=== PATIENT | male | born 1970 | race Caucasian/White ===

== ENCOUNTER 2020-03-19 16:44 | Emergency (ER) | payer OTHER ==
[~2020-03-19] VITALS: Ht 175.3 cm; Wt 117.9 kg
[~2020-03-19 16:44] MED LIST: ACHD5005 PO; AMOX-355 PO; BACL10TA PO; FLUT9.9S NS; LORA10TA7 PO; NAPR-243 PO
[2020-03-19 16:53] VITALS: BP 144/96
[2020-03-19] MEDS ORDERED: TETRACAINE 0.5% OPHTH SOLN 4 ML BTL (SINGLE DOSE ONLY) OU ONE (17:00)
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
--- OUTSIDE RECORDS SUMMARY | 2020-03-19 22:11 | XMS REPORT | Continuity of Care Document ---
Author [facility] Address Unknown Phone Unavailable Care Team Providers Care Propulsion Systems Engineer Name Role Phone [facility] Unavailable Unavailable Problems Combined list of all problems from all Department of Defense and [facility] facilities. It does not include entries that were removed or entered in error. Problem Status Onset Date Problem Type Date of Resolution Comments Source visit for: routine eye exam Inactive Condition 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) Active Condition [facility] Cat bite - wound (SNOMED CT 979857657) Active Condition [facility] Chronic post-traumatic stress disorder ( SNOMED CT 334259345) Active Condition [facility] Depression * (ICD-9-CM 311.) Active Condition [facility] Environmental Allergies Active Condition [facility] Fatigue Active Condition [facility] Headaches * (ICD-9-CM 784.0) Active Condition [facility] Hearing loss * (ICD-9-CM 389.9) Active Condition [facility] Hyperlipidemia (SNOMED CT 52328837) Active Condition [facility] Moderate recurrent major depression (SNOMED CT 0116049 9) Active Condition [facility] Other, mixed, or unspecified drug abuse (ICD-9-CM 305. 90) Active Condition [facility] Subjective Tinnitus Active Condition [facility] Unspecified condition of brain (ICD-9-CM 348.9) Active Condition [facility] ICD-10-CM F33.1 Major depressive disorde r, recurrent, moderate with Provider Comments: Major Depressive Disorder,Recurrent,Moderate active Diagnosis [facility] ICD-10-CM Z71.89 Other specified counseling services manager ing with Provider Comments: Other specified counseling active Diagnosis [facility] ICD-10-CM G43.911 Migraine, unspecified, intractable, with status migrainosus with Provider Comments: Migraine, unspecified, Intractable, with Status Migrainosus active Diagnosis [facility] ICD-10-CM M25.522 Pain in left elbow wit h Provider Comments: Pain in left Elbow active Diagnosis [facility] ICD-10-CM B49. 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 Medication Details Route Status Patient Instructions Prescription Expires Prescript ion Number Last Dispense Date Ordering Pr ovider Order Date Source Atorvastatin 20mg, (Lipitor), Tablet, Oral TAKE ONE-HALF TABLET BY MOUTH EVERY OTHER DAY FOR CHOLESTEROL - REPORT ANY UNEXPLAINED MUSCLE PAIN/WEAKNESS TO YOUR PROVIDER Active 01/05/2021 [id number] 03/26/2020 [facility] 20mg, (Lipitor), Tablet, Oral TAKE ONE-HALF TABLET BY MOUTH EVERY OTHER DAY FOR CHOLESTEROL - REPORT ANY UNEXPLAINED MUSCLE PAIN/WEAKNESS TO YOUR PROVIDER Discontinued 03/15/2020 [id number] 09/03/2019 [facility]ACOB CRAIG [facility] Ator[facility]atin 20mg, (Lipitor), Tablet, Oral TAKE ONE-HALF TABLET BY MOUTH EVERY OTHER DAY FOR CHOLESTEROL - REPORT ANY UNEXPLAINED MUSCLE PAIN/WEAKNESS TO YOUR PROVIDER 10/18/2019 [id number] 03/17/2019 JACOB CRAIG 04[facility]03/2019 [facility] ATORVASTATIN CA 20MG TAB TAKE ONE-HALF TABLET BY MOUTH EVERY OTHER DAY FOR CHOLESTEROL - REPORT ANY UNEXPLAINED MUSCLE PAIN/WEAKNESS TO YOUR PROVIDER ACTIVE 01/05/2021 [id number] 03/26/2020 JACOB CRAIG 01/06/2020 [facility] ATORVASTATIN CA 20MG TAB TAKE ONE-HALF TABLET BY MOUTH EVERY OTHER DAY FOR CHOLESTEROL - REPORT ANY UNEXPLAINED MUSCLE PAIN/WEAKNESS TO YOUR PROVIDER DISCONTINUE 03/15/2020 [id number] 09/03/2019 JACOB CRAIG 06/15/2019 [facility] ATORVASTATIN CA 20MG TAB TAKE ONE-HALF TABLET BY MOUTH EVERY OTHER DAY FOR CHOLESTEROL - REPORT ANY UNEXPLAINED MUSCLE PAIN/WEAKNESS TO YOUR PROVIDER DISCONTINUE 10/18/2019 [id number] 03/17/2019 JACOB CRAIG 12/27/2018 [facility] FISH OIL 1000MG (500MG DHA/EPA) CAP,ORAL TAKE 2 CAPSULES BY MOUTH ONCE A DAY ACTIVE MADDIECARLOS Villegas Dulce Maria 08/11/2016 [facility] Fluoxetine (Prozac or Eq.) Capsule Conve ntional 20 mg Oral TAKE THREE CAPSULES BY MOUTH EVERY MORNING FOR MOOD. Active 12/19/2020 [id number] 06/07/2020 SANTIAGO SORIA 02/29/2020 [facility] Flu[facility] (Prozac or Eq.) Capsule Conve ntional 20 mg Oral TAKE TWO CAPSULES BY MOUTH EVERY MORNING FOR MOOD. Discontinued 09/19/2020 [id number] 12/09/2019 SANTIAGO SORIA 12/19/2019 [facility] Flu[facility] (Prozac or Eq.) Capsule Conve ntional 20 mg Oral TAKE ONE CAPSULE BY MOUTH EVERY MORNING FOR 2 WEEKS, THEN TAKE TWO CAPSULES EVERY MORNING FOR MOOD. Discontinued 09/19/2020 [id number] 09/20/2019 SANTIAGO SORIA 10/02/2019 [facility] Flu[facility] (Prozac or Eq.) Capsule Conve ntional 20 mg Oral TAKE TWO CAPSULES BY MOUTH EVERY MORNING FOR MOOD. PATIENT NEEDS TO FOLLOW UP WITH REGULAR PROVIDER TO GET FURTHER REFILL. Discontinued 06/12/2019 [id number] 03/14/2019 ASH MCDERMOTT 09/02/2019 [facility] FLUOXETINE HCL 20MG CAP TAKE 3 CAPSULES BY MOUTH EVERY MORNING FOR MOOD. ACTIVE/SUSP 12/19/2020 [id number] 06/07/2020 SANTIAGO SORIA 12/20/2019 JIM DAVILA [facility] FLUOXETINE HCL 20MG CAP TAKE T WO CAPSULES BY MOUTH EVERY MORNING FOR MOOD. DISCONTINUED (EDIT) 09/19/2020 [id number] 12/09/2019 SANTIAGO SORIA 12/09/2019 JIM DAVILA [facility] FLUOXETINE HCL 20MG CAP TAKE 1 CAPSULE BY MOUTH EVERY MORNING FOR 2 WEEKS THEN TAKE 2 CAPSULES BY MOUTH EVERY MORNING FOR MOOD. DISCONTINUE 09/19/2020 [id number] 09/20/2019 SANTIAGO SORIA 09/20/2019 JIM DAVILA [facility] FLUOXETINE HCL 20MG CAP TAKE T WO CAPSULES BY MOUTH EVERY MORNING FOR MOOD. PATIENT NEEDS TO FOLLOW UP WITH REGULAR PROVIDER TO GET FURTHER REFILL. DISCONTINUED 06/12/2019 [id number] 03/14/2019 ASH MCDERMOTT 03/14/2019 JIM DAVILA [facility] Fluticasone Propionate (Flonase) [place] 50 mcg Nasal INSTILL 2 SPRAYS IN EACH NOSTRIL ONCE A DAY SHAKE GENTLY BEFORE USE! - MUST BE USED DIRECTED FOR 3 WEEKS TO PROVIDE BENEFIT. * NO EARLY REFILLS * 1UNIT = 30DAYS AT 4 PF/DAY OR 60DAYS AT 2PF/DAY Active 08/24 [id number] 02/26/2020 JACOB CRAIG 12/07/2019 [facility], VISN 15 FLUTICASONE PROPIONATE 50MCG/SPRAY SOLN,NASAL,16GM INSTILL 2 SPRAYS IN EACH NOSTRIL ONCE A DAY SHAKE GENTLY BEFORE USE! - MUST BE USED DIRECTED FOR 3 WEEKS TO PROVIDE BENEFIT. * NO EARLY REFILLS * 1UNIT = 30DAYS AT 4 PF/DAY OR 60DAYS AT 2PF/DAY ACTIVE 08/24 [id number] 02/26/2020 JACOB CRAIG 12/08/2019 [facility] FLUTICASONE PROPIONATE 50MCG/SPRAY SOLN,NASAL,16GM INSTILL 2 SPRAYS IN EACH NOSTRIL ONCE A DAY SHAKE GENTLY BEFORE USE! - MUST BE USED DIRECTED FOR 3 WEEKS TO PROVIDE BENEFIT. * NO EARLY REFILLS * 1UNIT = 30DAYS AT 4 PF/DAY OR 60DAYS AT 2PF/DAY DISCONTINUE 03/03/2020 [id number] 09/19/2019 JACOB CRAIG 03/08/2019 [facility] IBUPROFEN 200MG TAB TAKE ONE T ABLET BY MOUTH TWO TIMES A DAY NEEDED ACTIVE JACOB CRAIG 03/21/2019 [facility] Omeprazole (Prilosec Eq.) Capsule [place] d Release 20 mg Oral TAKE ONE CAPSULE BY MOUTH EVERY MORNING TO LOWER STOMACH ACID. TAKE 30 MINUTES PRIOR TO FOOD. Active 09/08/2020 [id number] 05/26/2020 JACOB CRAIG 02/21/2020 [facility], VISN 15 OMEPRAZOLE 20MG CAP,EC TAKE ON E CAPSULE BY MOUTH EVERY MORNING TO LOWER STOMACH ACID. TAKE 30 MINUTES PRIOR TO FOOD. ACTIVE/SUSP 09/08/2020 [id number] 05/26/2020 JACOB CRAIG Janiya 09/09/2019 [facility] OMEPRAZOLE 20MG CAP,EC TAKE ON E CAPSULE BY MOUTH EVERY MORNING TO LOWER STOMACH ACID. TAKE 30 MINUTES PRIOR TO FOOD. 01/27/2019 [id number] 01/03/2019 RAFAJACOB 04/18/2018 [facility] Sildenafil 50mg, Tablet, Oral TAKE ONE-HALF TABLET BY MOUTH DIRECTED FOR ERECTILE DYSFUNCTION. ONE HOUR BEFORE SEXUAL ENCOUNTER *DO NOT TAKE MORE THAN 1 DOSE A DAY* 4 DOSES PER 30 DAYS ONLY! Active 08/31/2020 [id number] 01/20/2020 RAFAJACOB 12/15/2019 [facility], VISN 15 Sildenafil 50mg, Tablet, Oral TAKE ONE-HALF TABLET BY MOUTH DIRECTED FOR ERECTILE DYSFUNCTION. ONE HOUR BEFORE SEXUAL ENCOUNTER *DO NOT TAKE MORE THAN 1 DOSE A DAY* 4 DOSES PER 30 DAYS ONLY! Discontinued 03/15/2020 [id number] 08/03/2019 RAFAJACOB 09/03/2019 [facility], VISN 15 SILDENAFIL CITRATE 50MG TAB TA KE ONE-HALF TABLET BY MOUTH DIRECTED FOR ERECTILE DYSFUNCTION. ONE HOUR BEFORE SEXUAL ENCOUNTER *DO NOT TAKE MORE THAN 1 DOSE A DAY* 4 DOSES PER 30 DAYS ONLY! ACTIVE 08/31/2020 [id number] 01/20/2020 RAFAJACOB 09/02/2019 [facility] SILDENAFIL CITRATE 50MG TAB TA KE ONE-HALF TABLET BY MOUTH DIRECTED FOR ERECTILE DYSFUNCTION. ONE HOUR BEFORE SEXUAL ENCOUNTER *DO NOT TAKE MORE THAN 1 DOSE A DAY* 4 DOSES PER 30 DAYS ONLY! DISCONTINUE 03/15/2020 [id number] 08/03/2019 RAFAJACOB ROBBINS 03/16/2019 [facility] SILDENAFIL CITRATE 50MG TAB TA KE ONE-HALF TABLET BY MOUTH DIRECTED FOR ERECTILE DYSFUNCTION. ONE HOUR BEFORE SEXUAL ENCOUNTER *DO NOT TAKE MORE THAN 1 DOSE A DAY* 4 DOSES PER 30 DAYS ONLY! DISCONTINUE 08/12/2019 [id number] 01/19/2019 RAFAJACOB ROBBINS 09/01/2018 [facility] Sumatriptan 25mg, Tablet, Oral TAKE ONE TABLET BY MOUTH DIRECTED FOR MIGRAINE. TAKE AT ONSET OF HEADACHE. MAY REPEAT AFTER 2 HOURS. NOT TO EXCEED 2 TABLETS IN 24 HOURS. Active 10/2020 [id number] 02/13/2020 JACOB CRAIG 01/31/2020 [facility], VISN 15 Sumatriptan 25mg, Tablet, Oral TAKE ONE TABLET BY MOUTH DIRECTED FOR MIGRAINE. TAKE AT ONSET OF HEADACHE. MAY REPEAT AFTER 2 HOURS. NOT TO EXCEED 2 TABLETS IN 24 HOURS. Discontinued 09/19/2020 [id number] 10/10/2019 JACOB CRAIG 01/24/2020 [facility] VISN 15 SUMATRIPTAN SUCCINATE 25MG TAB TAKE ONE TABLET BY MOUTH DIRECTED FOR MIGRAINE. TAKE AT ONSET OF HEADACHE. MAY REPEAT AFTER 2 HOURS. NOT TO EXCEED 2 TABLETS IN 24 HOURS. ACTIVE 10/2020 [id number] 02/13/2020 JACOB CRAIG 01/24/2020 [facility] SUMATRIPTAN SUCCINATE 25MG TAB TAKE ONE TABLET BY MOUTH DIRECTED FOR MIGRAINE. TAKE AT ONSET OF HEADACHE. MAY REPEAT AFTER 2 HOURS. NOT TO EXCEED 2 TABLETS IN 24 HOURS. DISCONTINUE 09/19/2020 [id number] 10/10/2019 JACOB CRAIG 09/20/2019 [facility] TERBINAFINE HCL 1% CREAM,TOP A PPLY LIGHTLY TO AFFECTED AREA TWO TIMES A DAY FOR INFECTION [id number] 09/19/2019 JACOB CRAIG 02/18/2019 [facility] TERBINAFINE HCL 250MG TAB TAKE ONE TABLET BY MOUTH ONCE A DAY 02/16/2020 [id number] 05/11/2019 JACOB CRAIG 02/18/2019 [facility] Terbinafine Hcl, 1%, Cream(gm), Topical APPLY LIGHTLY TO AFFECTED AREA TWO TIMES A DAY FOR INFECTION [id number] 03/06/2019 JACOB CRAIG 02/17/2020 [facility], VISN 15 Terbinafine Hydrochloride (Lamisil Eq.) Tablet 250 mg Oral TAKE ONE TABLET BY MOUTH ONCE A DAY [id number] 03/06/2019 JACOB CRAIG 02/17/2020 [facility], VISN 15 TESTOSTERONE 1.62% 20.25MG/PUMP GEL,TOP APPLY 4 PUMPS (81MG) ON SKIN EVERY MORNING DIRECTED - FOR HORMONE REPLACEMENT- APPLY TO CLEAN DRY INTACT SKIN OF SHOULDERS OR UPPER ARMS DISCONTINUE 09/21/2019 [id number] 08/09/2019 VANN[facility] CARPIO 03/22/[address] [facility] TESTOSTERONE 1.62% 20.25MG/PUMP GEL,TOP APPLY 4 PUMPS (81MG) ON SKIN EVERY MORNING DIRECTED - FOR HORMONE REPLACEMENT- APPLY TO CLEAN DRY INTACT SKIN OF SHOULDERS OR UPPER ARMS 03/16/2020 [id number] 02/08/2020 VANNESSA CARPIO 09/21/[address] [facility] TESTOSTERONE 1.62% 20.25MG/PUMP GEL,TOP APPLY 4 PUMPS (81MG) ON SKIN ONCE A DAY - FOR HORMONE REPLACEMENT- APPLY TO CLEAN DRY INTACT SKIN OF SHOULDERS OR UPPER ARMS. USE EVERY MORNING DIRECTED 03/17/2019 [id number] 02/20/2019 VANNESSA CARPIO 09/27/[address] [facility] Testosterone 20.25 mg/Actuation Gel/Jell y, Topical, 60 Actuation Pump APPLY 4 PUMPS (81MG) ON SKIN ONCE A DAY - FOR HORMONE REPLACEMENT- APPLY TO CLEAN DRY INTACT SKIN OF SHOULDERS OR UPPER ARMS. USE EVERY MORNING DIRECTED 03/17/2019 [id number] 01/15/2019 VANNESSA CARPIO 01/19/2019 [facility], VISN 15 Testosterone 20.25 mg/Actuation, Gel/Jelly, Topical APPLY 4 PUMPS (81MG) ON SKIN EVERY MORNING DIRECTED - FOR HORMONE REPLACEMENT- APPLY TO CLEAN DRY INTACT SKIN OF SHOULDERS OR UPPER ARMS 03/16/2020 [id number] 02/08/2020 VANNESSA CARPIO 03/17/2020 [facility], [facility] 15 Testosterone 20.25 mg/Actuation, Gel/Jelly, Topical APPLY 4 PUMPS (81MG) ON SKIN EVERY MORNING DIRECTED - FOR HORMONE REPLACEMENT- APPLY TO CLEAN DRY INTACT SKIN OF SHOULDERS OR UPPER ARMS Discontinued 09/21/2019 [id number] 08/09/2019 VANNESSA CARPIO 09/22/2019 [facility], [facility] 15 Triamcinolone Acetonide (Kenalog Eq.) Cr eam 0.5% Topical APPLY SPARINGLY TO AFFECTED AREA TWO JAS ES A DAY NEEDED FOR RASH 03/03/2020 [id number] 07/18/2019 JACOB CRAIG 03/04/2020 [facility], VIS[facility] 15 Triamcinolone Acetonide (Kenalog Eq.) Cr eam 0.5% Topical APPLY SPARINGLY TO AFFECTED AREA TWO JAS ES A DAY NEEDED FOR RASH 03/03/2020 [id number] 07/18/2019 JACOB CRAIG 05/29/2019 [facility], V[facility] 15 TRIAMCINOLONE ACETONIDE 0.5% CREAM,TOP APPLY SPARINGLY TO AFFECTED AREA TWO TIMES A DAY NEEDED FOR RASH DISCONTINUE 08/12/2019 [id number] 01/29/2019 JACOB CRAIG 11/10/2018 [facility] TRIAMCINOLONE ACETONIDE 0.5% CREAM,TOP APPLY SPARINGLY TO AFFECTED AREA TWO TIMES A DAY NEEDED FOR RASH 03/03/2020 [id number] 07/18/2019 JACOB CRAIG 04/29/2019 [facility] Valacyclovir 500mg, Tablet, Oral TAKE ONE TABLET BY MOUTH TWO TIMES A DAY NOTE-THIS MEDICATION IS NOT FOR DETENTION USE... 10/18/2019 [id number] 09/19/2019 JACOB CRAIG 10/19/2019 [facility], VIS[facility] 15 VALACYCLOVIR HCL 500MG TAB CESAR E ONE TABLET BY MOUTH TWO TIMES A DAY NOTE-THIS MEDICATION IS NOT FOR TEACHER COUNSELOR USE... 10/18/2019 [id number] 09/19/2019 JACOB CRAIG 10/20/2018 [facility] Allergies, Adverse Reactions, Alerts No Known Medication Allergies Immunizations Combined list of: 1) all immunizations on record at all [facility] facilit ies, and 2) all available immunizations on record at Department of Defense (Do D) facilities. Some immunizations on record at DoD may not be included. Immunization Series Date Given Administered By Site Reaction Lot Number CVX Code Drug Rigging Engineer Status Comments Source INFLUENZA, INJECTABLE, QUADRIVALENT, PRESERVATIVE FREE 09/19/2019 150 completed [facility] INFLUENZA, INJECTABLE, QUADRIVALENT, PRESERVATIVE FREE 06/22/2018 150 completed [facility] INFLUENZA, INJECTABLE, QUADRIVALENT, PRESERVATIVE FREE 06/18/2017 150 completed [facility] INFLUENZA, SEASONAL, INJECTABLE 08/05/2016 141 completed [facility] INFLUENZA (HISTORICAL) 05/15/2015 88 completed [facility] INFLUENZA, SEASONAL, INJECTABLE, PRESERVATIVE FREE 05/15/2015 140 completed [facility] INFLUENZA (HISTORICAL) 06/11/2014 88 completed [facility] INFLUENZA, SEASONAL, INJECTABLE, PRESERVATIVE FREE 06/11/2014 140 completed [facility] TD(ADULT) UNSPECIFIED FORMULATION 01/05/2014 139 completed [id number] exp 03/08/2015 [facility] INFLUENZA (HISTORICAL) 06/21/2013 88 completed [facility] INFLUENZA (HISTORICAL) 06/08/2012 88 completed [facility] TD(ADULT) UNSPECIFIED FORMULATION 04/23/2006 139 completed [facility] 15 Results Combined list of recent chemistry, hematology and other laboratory results going back no more than 15 months from the Department of Defense and Veterans Affairs facilities. Order Name Results Value Reference Range Date Interpretation Specimen Comments Source CBC & DIFF LEUKOCYTES [#/VOLUM E] IN BLOOD BY AUTOMATED COUNT 6.0 K/cmm 3.60 - 11.20 09/19/2019 Specimen Type: BLOOD No comment entered. [facility] CBC & DIFF ERYTHROCYTES [#/VOL UME] IN BLOOD BY AUTOMATED COUNT 5.53 M/ul 4.1 - 5.7 09/19/2019 Specimen Type: BLOOD No comment entered. [facility] DIFF HEMOGLOBIN [MASS/VOLUME] IN BLOOD 15.8 g/dl 13.1 - 16.8 09/19/2019 Specimen T ype: BLOOD No comment entered. [facility] CBC & DIFF HEMATOCRIT [VOLUME FRACTION] OF BLOOD BY AUTOMATED COUNT 47.6 % 38.2 - 48.4 09/19/2019 Specimen Type: BLOOD No comment entered. [facility] CBC & DIFF MCV [ENTITIC VOLUME] BY A UTOMATED COUNT 86.1 fl 80.1 - 98.5 09/19/2019 Specimen Type: BLOOD No comment entered. [facility] CBC & DIFF MCH [ENTITIC MASS] BY AUT OMATED COUNT 28.6 pg 27.0 - 34.0 09/19/2019 Specimen T ype: BLOOD No comment entered. [facility] CBC & DIFF MCHC [MASS/VOLUME] BY AUT OMATED COUNT 33.2 g/dl 33.0 - 36.0 09/19/2019 Specimen Type: BLOOD No comment entered. [facility] CBC & DIFF PLATELETS [#/VOLUME ] IN BLOOD BY AUTOMATED COUNT 227 K/cmm 150 - 400 09/19/2019 Specimen Type: BLOOD No comment entered. [facility] CBC & DIFF PLATELET MEAN VOLUM E [ENTITIC VOLUME] IN BLOOD BY AUTOMATED COUNT 11.0 fl 7.5 - 11.2 09/19/2019 Specimen Type: BLOOD No comment entered. [facility] CBC & DIFF ERYTHROCYTE DISTRIB UTION WIDTH [RATIO] BY AUTOMATED COUNT 11.5 % 11.8 - 15.1 09/19/2019 L Specimen Type: BLOOD No comment entered. [facility] CBC & DIFF LYMPHOCYTES/100 KATT KOCYTES IN BLOOD BY AUTOMATED COUNT 28.9 % 09/19/2019 Specimen Type: BLOOD No comment entered. [facility] CBC & DIFF NEUTROPHILS/100 KATT KOCYTES IN BLOOD BY AUTOMATED COUNT 58.7 % 09/19/2019 Specimen Type: BLOOD No comment entered. [facility] CBC & DIFF MONOCYTES/100 LEUKO CYTES IN BLOOD BY AUTOMATED COUNT 7.6 % 09/19/2019 Specimen Type: BLOOD No comment entered. [facility] CBC & DIFF MONOCYTES [#/VOLUME ] IN BLOOD BY AUTOMATED COUNT 0.5 K/cmm 0.19 - 0.80 09/19/2019 Specimen Type: BLOOD No comment entered. [facility] CBC & DIFF NEUTROPHILS [#/VOLU ME] IN BLOOD BY AUTOMATED COUNT 3.5 K/cmm 2.10 - 8.00 09/19/2019 Specimen Type: BLOOD No comment entered. [facility] CBC & DIFF EOSINOPHILS [#/VOLU ME] IN BLOOD BY AUTOMATED COUNT 0.2 K/cmm 0.00 - 0.60 09/19/2019 Specimen Type: BLOOD No comment entered. [facility] CBC & DIFF BASOPHILS [#/VOLUME ] IN BLOOD BY AUTOMATED COUNT 0.0 K/cmm 0.00 - 0.20 09/19/2019 Specimen Type: BLOOD No comment entered. [facility] CBC & DIFF EOSINOPHILS/100 KATT KOCYTES IN BLOOD BY AUTOMATED COUNT 3.8 % 09/19/2019 Specimen Type: BLOOD No comment entered. [facility] CBC & DIFF BASOPHILS/100 LEUKO CYTES IN BLOOD BY AUTOMATED COUNT 0.7 % 09/19/2019 Specimen Type: BLOOD No comment entered. [facility] CBC & DIFF LYMPHOCYTES [#/VOLU ME] IN BLOOD BY AUTOMATED COUNT 1.7 K/cmm 0.77 - 4.50 09/19/2019 Specimen Type: BLOOD No comment entered. [facility] CBC & DIFF IMMATURE GRANULOCYT ES [#/VOLUME] IN BLOOD BY AUTOMATED COUNT 0.02 K/cmm 0.00 - 0.05 09/19/2019 Specimen Type: BLOOD No comment entered. [facility] CBC & DIFF IMMATURE GRANULOCYT ES/100 LEUKOCYTES IN BLOOD BY AUTOMATED COUNT 0.3 % 09/19/2019 Specimen Type: BLOOD No comment entered. [facility] COMPREHENSIVE METABOLIC PANEL CREATININE [MASS/VOLUME] IN SERUM OR PLASMA 0.83 mg/dL 0.7 - 1.3 09/19/2019 Specimen Type: PLASMA Comment: For eGFR: eGFR results >60 are imprecise. Many variables affect the calculated result. Interpretation of eGFR results >60 must be monitored over time. [facility] COMPREHENSIVE METABOLIC PANEL UREA NITROGEN [MASS/VOLUME] IN SERUM OR PLASMA 17 mg/dL 9 - 25 09/19/2019 Specimen Type: PLASMA Comment: For eGFR: eGFR results >60 are imprecise. Many variables affect the calculated result. Interpretation of eGFR results >60 must be monitored over time. [facility] COMPREHENSIVE METABOLIC PANEL GLUCOSE [MASS/VOLUME] IN SERUM OR PLASMA 97 mg/dL 72 - 99 09/19/2019 Specimen Type: PLASMA Comment: For eGFR: eGFR results >60 are imprecise. Many variables affect the calculated result. Interpretation of eGFR results >60 must be monitored over time. [facility] COMPREHENSIVE METABOLIC PANEL SODIUM [MOLES/VOLUME] IN SERUM OR PLASMA 136 mEq/L 136 - 145 09/19/2019 Specimen Type: PLASMA Comment: For eGFR: eGFR results >60 are imprecise. Many variables affect the calculated result. Interpretation of eGFR results >60 must be monitored over time. [facility] COMPREHENSIVE METABOLIC PANEL POTASSIUM [MOLES/VOLUME] IN SERUM OR PLASMA 4.3 mEq/L 3.5 - 5.0 09/19/2019 Specimen Type: PLASMA Comment: For eGFR: eGFR results >60 are imprecise. Many variables affect the calculated result. Interpretation of eGFR results >60 must be monitored over time. [facility] COMPREHENSIVE METABOLIC PANEL CALCIUM [MASS/VOLUME] IN SERUM OR PLASMA 9.1 mg/dL 8.4 - 10.4 09/19/2019 Specimen Type: PLASMA Comment: For eGFR: eGFR results >60 are imprecise. Many variables affect the calculated result. Interpretation of eGFR results >60 must be monitored over time. [facility] COMPREHENSIVE METABOLIC PANEL PROTEIN [MASS/VOLUME] IN SERUM OR PLASMA 7.3 g/dL 6.0 - 8.6 09/19/2019 Specimen Type: PLASMA Comment: For eGFR: eGFR results >60 are imprecise. Many variables affect the calculated result. Interpretation of eGFR results >60 must be monitored over time. [facility] COMPREHENSIVE METABOLIC PANEL ALBUMIN [MASS/VOLUME] IN SERUM OR PLASMA 4.3 g/dl 3.4 - 5.0 09/19/2019 Specimen Type: PLASMA Comment: For eGFR: eGFR results >60 are imprecise. Many variables affect the calculated result. Interpretation of eGFR results >60 must be monitored over time. [facility] METABOLIC PANEL BILIRUBIN.TOTAL [MASS/VOLUME] IN SERUM OR PLASMA 0.6 mg/dL 0.2 - 1.2 09/19/2019 Specimen Type: PLASMA Comment: For eGFR: eGFR results >60 are imprecise. Many variables affect the calculated result. Interpretation of eGFR results >60 must be monitored over time. [facility] COMPREHENSIVE METABOLIC PANEL ASPARTATE AMINOTRANSFERASE [ENZYMATIC ACTIVITY/VOLUME] IN SERUM OR PLASMA 33 U/L 5 - 34 09/19/2019 Specimen Type: PLASMA Comment: For eGFR: eGFR results >60 are imprecise. Many variables affect the calculated result. Interpretation of eGFR results >60 must be monitored over time. [facility] COMPREHENSIVE METABOLIC PANEL ALANINE AMINOTRANSFERASE [ENZYMATIC ACTIVITY/VOLUME] IN SERUM OR PLASMA 41 U/L 8 - 40 09/19/2019 H Specimen Type: PLASMA Comment: For eGFR: eGFR results >60 are imprecise. Many variables affect the calculated result. Interpretation of eGFR results >60 must be monitored over time. [facility] COMPREHENSIVE METABOLIC PANEL ANION GAP IN SERUM OR PLASMA 5.7 2019 L Specimen Type: PLASMA Comment: For eGFR: eGFR results >60 are imprecise. Many variables affect the calculated result. Interpretation of eGFR results >60 must be monitored over time. [facility] COMPREHENSIVE METABOLIC PANEL CHLORIDE [MOLES/VOLUME] IN SERUM OR PLASMA 103 mEq/L 98 - 107 09/19/2019 Specimen Type: PLASMA Comment: For eGFR: eGFR results >60 are imprecise. Many variables affect the calculated result. Interpretation of eGFR results >60 must be monitored over time. [facility] COMPREHENSIVE METABOLIC PANEL "CARBON DIOXIDE, TOTAL [MOLES/VOLUME] IN SERUM OR PLASMA" 27.3 mEq/L 22 - 31 09/19/2019 Specimen Type: PLASMA Comment: For eGFR: eGFR results >60 are imprecise. Many variables affect the calculated result. Interpretation of eGFR results >60 must be monitored over time. [facility] [place] COMPREHENSIVE METABOLIC PANEL ALKALINE PHOSPHATASE [ENZYMATIC ACTIVITY/VOLUME] IN SERUM OR PLASMA 67 U/L 40 - 150 09/19/2019 Specimen Type: PLASMA Comment: For eGFR: eGFR results >60 are imprecise. Many variables affect the calculated result. Interpretation of eGFR results >60 must be monitored over time. [facility] COMPREHENSIVE METABOLIC PANEL GLOMERULAR FILTRATION RATE/1.73 SQ M.PREDICTED [VOLUME RATE/AREA] IN SERUM OR PLASMA BY CREATININE- BASED FORMULA (MDRD) >60 09/19/2019 Specimen Type: PLASMA Comment: For eGFR: eGFR results >60 are imprecise. Many variables affect the calculated result. Interpretation of eGFR results >60 must be monitored over time. [facility] LIPID PROFILE(HDL,TRIG,CHOL,LDL) CHOLESTEROL [MASS/VOLUME] IN SERUM OR PLASMA 124 mg/dL 0 - 200 09/19/2019 Specimen Type: PLASMA Comment: For eGFR: eGFR results >60 are imprecise. Many variables affect the calculated result. Interpretation of eGFR results >60 must be monitored over time. [facility] LIPID PROFILE(HDL,TRIG,CHOL,LDL) TRIGLYCERIDE [MASS/VOLUME] IN SERUM OR PLASMA 66 mg/dL 0 - 150 09/19/2019 Specimen Type: PLASMA Comment: For eGFR: eGFR results >60 are imprecise. Many variables affect the calculated result. Interpretation of eGFR results >60 must be monitored over time. [facility] LIPID PROFILE(HDL,TRIG,CHOL,LDL) CHOLESTEROL IN HDL [MASS/VOLUME] IN SERUM OR PLASMA 39 mg/dL 09/19/2019 L Specimen Type: PLASMA Comment: For eGFR: eGFR results >60 are imprecise. Many variables affect the calculated result. Interpretation of eGFR results >60 must be monitored over time. [facility] LIPID PROFILE(HDL,TRIG,CHOL,LDL) CHOLESTEROL IN LDL [MASS/VOLUME] IN SERUM OR PLASMA BY CALCULATION 72 mg/dL 0 - 99.9 09/19/2019 Specimen Type: PLASMA Comment: For eGFR: eGFR results >60 are imprecise. Many variables affect the calculated result. Interpretation of eGFR results >60 must be monitored over time. [facility] TESTOSTERONE (RAMON,WI,EK) TESTOS TERONE [MASS/VOLUME] IN SERUM OR PLASMA 180.25 ng/dL 221 - 871 09/19/2019 L Specimen Type: SERUM No comment entered. [facility] TSH THYROTROPIN [UNITS/VOLUME] IN SE RUM OR PLASMA 2.28 uIU/mL 0.47 - 5.00 09/19/2019 Specimen Type: SERUM No comment entered. [facility] GAMMA GLUTAMYL TRANS GAMMA GLU TAMYL TRANSFERASE [ENZYMATIC ACTIVITY/VOLUME] IN SERUM OR PLASMA 42 U/L 12 - 64 10/12/2018 Specimen Type: PLASMA No comment entered. [facility] HEPATIC FUNCTION PANEL PROTEIN [MASS/VOLUME] IN SERUM OR PLASMA 6.9 g/dL 6.0 - 8.6 10/12/2018 Specimen Type: PLASMA No comment entered. [facility] HEPATIC FUNCTION PANEL ALBUMIN [MASS/VOLUME] IN SERUM OR PLASMA 4.2 g/dl 3.4 - 5.0 10/12/2018 Specimen Type: PLASMA No comment entered. [facility] HEPATIC FUNCTION PANEL BILIRUB IN.TOTAL [MASS/VOLUME] IN SERUM OR PLASMA 0.5 mg/dL 0.2 - 1.2 10/12/2018 Specimen Type: PLASMA No comment entered. [facility] HEPATIC FUNCTION PANEL BILIRUB IN.DIRECT [MASS/VOLUME] IN SERUM OR PLASMA 0.2 mg/dL 0 - 0.5 10/12/2018 Specimen Type: PLASMA No comment entered. [facility] HEPATIC FUNCTION PANEL ASPARTA TE AMINOTRANSFERASE [ENZYMATIC ACTIVITY/VOLUME] IN SERUM OR PLASMA 42 U/L 5 - 34 10/12/2018 H Specimen Type: PLASMA No comment entered. [facility] HEPATIC FUNCTION PANEL ALANINE AMINOTRANSFERASE [ENZYMATIC ACTIVITY/VOLUME] IN SERUM OR PLASMA 58 U/L 8 - 40 10/12/2018 H Specimen Type: PLASMA No comment entered. [facility] HEPATIC FUNCTION PANEL ALKALIN E PHOSPHATASE [ENZYMATIC ACTIVITY/VOLUME] IN SERUM OR PLASMA 76 U/L 40 - 150 10/12/2018 Specimen Type: PLASMA No comment entered. [facility] COMPREHENSIVE METABOLIC PANEL CREATININE [MASS/VOLUME] IN SERUM OR PLASMA 0.97 mg/dL 0.7 - 1.3 06/22/2018 Specimen Type: PLASMA Comment: For eGFR: eGFR results >60 are imprecise. Many variables affect the calculated result. Interpretation of eGFR results >60 must be monitored over time. [facility] COMPREHENSIVE METABOLIC PANEL UREA NITROGEN [MASS/VOLUME] IN SERUM OR PLASMA 18 mg/dL 9 - 25 06/22/2018 Specimen Type: PLASMA Comment: For eGFR: eGFR results >60 are imprecise. Many variables affect the calculated result. Interpretation of eGFR results >60 must be monitored over time. [facility] COMPREHENSIVE METABOLIC PANEL GLUCOSE [MASS/VOLUME] IN SERUM OR PLASMA 91 mg/dL 72 - 99 06/22/2018 Specimen Type: PLASMA Comment: For eGFR: eGFR results >60 are imprecise. Many variables affect the calculated result. Interpretation of eGFR results >60 must be monitored over time. [facility] COMPREHENSIVE METABOLIC PANEL SODIUM [MOLES/VOLUME] IN SERUM OR PLASMA 139 mEq/L 136 - 145 06/22/2018 Specimen Type: PLASMA Comment: For eGFR: eGFR results >60 are imprecise. Many variables affect the calculated result. Interpretation of eGFR results >60 must be monitored over time. [facility] COMPREHENSIVE METABOLIC PANEL POTASSIUM [MOLES/VOLUME] IN SERUM OR PLASMA 4.2 mEq/L 3.5 - 5.0 06/22/2018 Specimen Type: PLASMA Comment: For eGFR: eGFR results >60 are imprecise. Many variables affect the calculated result. Interpretation of eGFR results >60 must be monitored over time. [facility] COMPREHENSIVE METABOLIC PANEL CALCIUM [MASS/VOLUME] IN SERUM OR PLASMA 9.2 mg/dL 8.4 - 10.4 06/22/2018 Specimen Type: PLASMA Comment: For eGFR: eGFR results >60 are imprecise. Many variables affect the calculated result. Interpretation of eGFR results >60 must be monitored over time. [facility] COMPREHENSIVE METABOLIC PANEL PROTEIN [MASS/VOLUME] IN SERUM OR PLASMA 7.1 g/dL 6.0 - 8.6 06/22/2018 Specimen Type: PLASMA Comment: For eGFR: eGFR results >60 are imprecise. Many variables affect the calculated result. Interpretation of eGFR results >60 must be monitored over time. [facility] COMPREHENSIVE METABOLIC PANEL ALBUMIN [MASS/VOLUME] IN SERUM OR PLASMA 4.4 g/dl 3.4 - 5.0 06/22/2018 Specimen Type: PLASMA Comment: For eGFR: eGFR results >60 are imprecise. Many variables affect the calculated result. Interpretation of eGFR results >60 must be monitored over time. [facility] COMPREHENSIVE METABOLIC PANEL BILIRUBIN.TOTAL [MASS/VOLUME] IN SERUM OR PLASMA 0.7 mg/dL 0.2 - 1.2 06/22/2018 Specimen Type: PLASMA Comment: For eGFR: eGFR results >60 are imprecise. Many variables affect the calculated result. Interpretation of eGFR results >60 must be monitored over time. [facility] COMPREHENSIVE METABOLIC PANEL ASPARTATE AMINOTRANSFERASE [ENZYMATIC ACTIVITY/VOLUME] IN SERUM OR PLASMA 36 U/L 5 - 34 06/22/2018 H Specimen Type: PLASMA Comment: For eGFR: eGFR results >60 are imprecise. Many variables affect the calculated result. Interpretation of eGFR results >60 must be monitored over time. [facility] COMPREHENSIVE METABOLIC PANEL ALANINE AMINOTRANSFERASE [ENZYMATIC ACTIVITY/VOLUME] IN SERUM OR PLASMA 67 U/L 8 - 40 06/22/2018 H Specimen Type: PLASMA Comment: For eGFR: eGFR results >60 are imprecise. Many variables affect the calculated result. Interpretation of eGFR results >60 must be monitored over time. [facility] COMPREHENSIVE METABOLIC PANEL ANION GAP IN SERUM OR PLASMA 7.7 2017 L Specimen Type: PLASMA Comment: For eGFR: eGFR results >60 are imprecise. Many variables affect the calculated result. Interpretation of eGFR results >60 must be monitored over time. [facility] COMPREHENSIVE METABOLIC PANEL CHLORIDE [MOLES/VOLUME] IN SERUM OR PLASMA 104 mEq/L 98 - 107 06/22/2018 Specimen Type: PLASMA Comment: For eGFR: eGFR results >60 are imprecise. Many variables affect the calculated result. Interpretation of eGFR results >60 must be monitored over time. [facility] COMPREHENSIVE METABOLIC PANEL CARBON DIOXIDE, TOTAL [MOLES/VOLUME] IN SERUM OR PLASMA 27.3 mEq/L 22 - 31 06/22/2018 Specimen Type: PLASMA Comment: For eGFR: eGFR results >60 are imprecise. Many variables affect the calculated result. Interpretation of eGFR results >60 must be monitored over time. [facility] COMPREHENSIVE METABOLIC PANEL ALKALINE PHOSPHATASE [ENZYMATIC ACTIVITY/VOLUME] IN SERUM OR PLASMA 84 U/L 40 - 150 06/22/2018 Specimen Type: PLASMA Comment: For eGFR: eGFR results >60 are imprecise. Many variables affect the calculated result. Interpretation of eGFR results >60 must be monitored over time. [facility] COMPREHENSIVE METABOLIC PANEL GLOMERULAR FILTRATION RATE/1.73 SQ M.PREDICTED [VOLUME RATE/AREA] IN SERUM OR PLASMA BY CREATININE- BASED FORMULA (MDRD) >60 06/22/2018 Specimen Type: PLASMA Comment: For eGFR: eGFR results >60 are imprecise. Many variables affect the calculated result. Interpretation of eGFR results >60 must be monitored over time. [facility] TESTOSTERONE,FREE&TOTAL TESTOS TERONE FREE [MASS/VOLUME] IN SERUM OR PLASMA 31.9 pg/mL 46.0 - 224.0 06/22/2018 L Specimen Type: SERUM Comment: TESTOSTERONE, TOTAL, MS For additional information, please refer to http://[employer]faq/ [id number] (This link is being provided for informational/ educational purposes only.) This test was developed and its analytical performance characteristics have been determined by [employer] [place], [place]. It has not been cleared or approved by the U.S. Food and Drug Administration. This assay has been validated pursuant to the CLIA regulations and is used for clinical pur poses. [facility] TESTOSTERONE,FREE&TOTAL TESTOS TERONE.FREE+WEAKLY BOUND [MASS/VOLUME] IN SERUM OR PLASMA 65.6 ng/dL 110.0 - 575.0 06/22/2018 L Specimen Type: SERUM Comment: TESTOSTERONE, TOTAL, MS For additional information, please refer to http://[employer]faq/ TotalTestosteroneLC [email or web address] (This link is being provided for informational/ educational purposes only.) This test was developed and its analytical performance characteristics have been determined by [employer] [place], [place]. It has not been cleared or approved by the U.S. Food and Drug Administration. This assay has been validated pursuant to the CLIA regulations and is used for clinical purposes. [facility] TESTOSTERONE,FREE&TOTAL SEX HO RMONE BINDING GLOBULIN [MASS/VOLUME] IN SERUM OR PLASMA 26 nmol/L 10 - 50 06/22/2018 Specimen Type: SERUM Comment: TESTOSTERONE, TOTAL, MS For additional information, please refer to http://[employer]faq/ [id number] (This link is being provided for informational/ educational purposes only.) This test was developed and its analytical performance characteristics have been determined by [employer] [place], [place]. It has not been cleared or approved by the U.S. Food and Drug Administration. This assay has been validated pursuant to the CLIA regulations and is used for clinical pur poses. [facility] TESTOSTERONE,FREE&TOTAL ALBUMI N [MASS/VOLUME] IN SERUM OR PLASMA 4.5 g/dL 3.6 - 5.1 06/22/2018 Specimen Type: SERUM Comment: TESTOSTERONE, TOTAL, MS For additional information, please refer to http://[employer]faq/ OnzqsRybwjxhemifzFEIEYOWVV489 (This link is being provided for informational/ educational purposes only.) This test was developed and its analytical performance characteristics have been determined by [employer] [place], [place]. It has not been cleared or approved by the U.S. Food and Drug Administration. This assay has been validated pursuant to the CLIA regulations and is used for clinical pur poses. [facility] TESTOSTERONE,FREE&TOTAL TESTOS TERONE [MASS/VOLUME] IN SERUM OR PLASMA 215 ng/dL 250 - 1100 06/22/2018 L Specimen Type: SERUM Comment: TESTOSTERONE, TOTAL, MS For additional information, please refer to http://[employer]/faq/ [email or web address] (This link is being provided for informational/ educational purposes only.) This test was developed and its analytical performance characteristics have been determined by [employer] [place], [place]. It has not been cleared or approved by the U.S. Food and Drug Administration. This assay has been validated pursuant to the CLIA regulations and is used for clinical pur poses. [facility] URINALYSIS COLOR OF URINE Yello w 06/22/2018 Specimen Type: URINE No comment entered. [facility] URINALYSIS SPECIFIC GRAVITY OF URINE 1.027 06/22/2018 Specimen Type: URINE No comment entered. [facility] URINALYSIS UROBILINOGEN [MASS/VOLUME ] IN URINE 2.0 mg/dL 0.1 - 1.0 06/22/2018 H Specimen Type: URINE No comment entered. [facility] URINALYSIS BILIRUBIN.TOTAL [SC ESENCE] IN URINE BY TEST STRIP Negative 1 Specimen Type: URINE No comment entered. [facility] URINALYSIS KETONES [MASS/VOLUME] IN URINE BY TEST STRIP Negativemg/dl 06/22/2018 Specimen Type: URINE No comment entered. [facility] URINALYSIS GLUCOSE [MASS/VOLUME] IN URINE BY TEST STRIP Negativemg/dL 06/22/2018 Specimen Type: URINE No comment entered. [facility] URINALYSIS PROTEIN [MASS/VOLUME] IN URINE BY TEST STRIP Negativemg/dl - Trace" 06/22/2018 Specimen Type: URINE No comment entered. [facility] URINALYSIS PH OF URINE BY TEST STRIP 6.0 06/22/2018 Specimen Type: URINE No comment entered. [facility] URINALYSIS APPEARANCE OF URINE Clear 06/22/2018 Specimen Type: URINE No comment entered. [facility] URINALYSIS HEMOGLOBIN [PRESENCE] IN URINE Negative 06/22/2018 Specimen Type: URINE No comment entered. [facility] URINALYSIS NITRITE [PRESENCE] IN URI NE BY TEST STRIP Negative 06/22/2018 Specimen T ype: URINE No comment entered. [facility] URINALYSIS LEUKOCYTE ESTERASE [PRESENCE] IN URINE BY TEST STRIP Negative 1 Specimen Type: URINE No comment entered. [facility] Vital Signs Combined list of inpatient and outpatient Vital Signs from all [facility] and/or [facility] medical facilities within the last 15 months. The included entries comply with the patient's data sharing authorizations. Vital Sign Value Date Comments Source PAIN 0 09/19 09:09:00 [facility] SYSTOLIC BLOOD PRESSURE 126mm[ Hg] 03/21/2019 08:25:49 [facility] DIASTOLIC BLOOD PRESSURE 85mm[ Hg] 03/21/2019 08:25:49 [facility] PULSE OXIMETRY 92% 03/21/2019 08:25:49 [facility] WEIGHT 200[lb_av] 03/21/2019 08:25:49 [facility] BMI 30kg/m2 03/21/2019 08:25:49 [facility] HEIGHT 69[in_us] 03/21/2019 08:25:49 [facility] TEMPERATURE 97.5[degF] 03/21/2019 08:25:49 [facility] PULSE 66/min 03/21/2019 08:25:49 [facility] RESPIRATION 18/min 03/21/2019 08:25:49 [facility] Encounters Combined list of encounters at [facility] of Defense and/or [facility] ([place] ) for the last 15 months. Not all VA inpatient encounters are included. The incl uded entries comply with the patient's data sharing authorizations. Location Location Details Encounter Type Encounter Number Reason For Visit Attending Provider ADM Date DC Date Status Disposition Source OUTPATIENT [id number] [facility] 06/11/2004 Released w/o Edwin MORIN [place], [place](Optometry) Outpatient Encounter [id number] ICD-10 -CM H40.013 Open angle with borderline findings, low risk, bilateral with Provider Comments: Open Angle with Borderline Findings, low Risk, Bilateral EFRA RAMESH 10/21/2018 [facility] Outpatient Encounter [id number] _MAPID:[id number] 11/02/2018 [facility] Outpatient Encounter [id number] _MAPID:[id number] 11/02/2018 [facility] Outpatient Encounter [id number] _MAPID:[id number] 12/08/2018 [facility] Outpatient Encounter [id number] _MAPID:e [id number] 12/13/2018 [facility] Out[facility] Encounter [id number] _MAPID:[id number] 12/27/2018 JIM DAVILA [facility] Outpatient Encounter [id number] _MAPID:e [id number] 01/04/2019 [facility] Outpatient Encounter [id number] _MAPID:e [id number] 01/26/2019 [facility] Encounter [id number] ICD-10 -CM Z71.89 Other specified counseling with Provider Comments: Other specified counseling DANIELLALUZARELI العراقي 01/30/2019 [facility] OFFICE/OUT PATIENT VISIT EST [id number] ICD-10 -CM B49. Unspecified mycosis with Provider Comments: Unspecified Mycosis JACOB CRAIG 02/15/2019 [facility] Outpatient Encounter [id number] _MAPID:[id number] 03/10/2019 [facility] Outpatient Encounter [id number] ICD-10 -CM Z71.89 Other specified counseling with Provider Comments: Other specified counseling TAYLOR MANNING 03/10/2019 JIM DAVILA [facility] OFFICE/OUT PATIENT VISIT EST [id number] ICD-10 -CM M25.522 Pain in left elbow with Provider Comments: Pain in left Elbow JACOB CRAIG 03/21/2019 [facility] Outpatient Encounter [id number] _MAPID:[id number] 03/22/2019 JIM DAVILA [facility] Outpatient Encounter [id number] _MAPID:e [id number] 05/31/2019 [place] [address] Outpatient Encounter [id number] _MAPID:[id number] 07/19/2019 [facility] Outpatient Encounter [id number] _MAPID:[id number] 08/08/[facility] [id number] _MAPID:[id number] 08/11/2019 [facility] [id number] _MAPID:[id number] 08/14/2019 [facility] [id number] _MAPID:[id number] 09/01/2019 JIM DAVILA [facility] Outpatient Encounter [id number] ICD-10 -CM Z71.89 Other specified counseling with Provider Comments: Other specified counseling MAURINIKOLAI L 09/01/2019 JIM DAVILA [facility] Outpatient Encounter [id number] _MAPID:[id number] 09/15/2019 [facility] Outpatient Encounter [id number] _MAPID:[id number] 09/19/2019 [facility] OFFICE/OUT PATIENT VISIT EST [id number] ICD-10 -CM G43.911 Migraine, unspecified, intractable, with status migrainosus with Provider Comments: Migraine, unspecified, Intractable, with Status Migrainosus JACOB CRAIG 09/19/2019 [facility] OFFICE/OUT PATIENT VISIT EST [id number] ICD-10 -CM F33.1 Major depressive disorder, recurrent, moderate with Provider Comments: Major Depressive Disorder,Recurrent,Moderate ESTELLASANTIAGO S 09/19/2019 JIM Sanchez BARRYAlyce [facility] OFFICE/OUT PATIENT VISIT EST [id number] ICD-10 -CM F33.1 Major depressive disorder, recurrent, moderate with Provider Comments: Major Depressive Disorder,Recurrent,Moderate ESTELLASANTIAGO S 09/19/2019 [facility] Outpatient Encounter [id number] _MAPID:[id number] 09/21/2019 JIM CarreroTatiana REDDYAlyce [facility] Outpatient Encounter [id number] _MAPID:e [id number] TERI GARRETT 10/11/2019 [place] [address] Outpatient Encounter [id number] _MAPID:[id number] 10/18/2019 [facility] Outpatient Encounter [id number] ICD-10 -CM Z71.89 Other specified counseling with Provider Comments: Other specified counseling CYNTHIA DAWSON 11/27/2019 [facility] Outpatient Encounter [id number] _MAPID :[id number] 12/18/2019 [facility] [place] [id number] ICD-10 -CM F33.1 Major depressive disorder, recurrent, moderate with Provider Comments: Major Depressive Disorder,Recurrent,Moderate SANTIAGO SORIA S 12/19/[address] [facility] Outpatient Encounter [id number] _MAPID :6 01/18/[address] [facility] Outpatient Encounter [id number] _MAPID :[id number] [facility] [id number] _MAPID :4 02/12/[address] [facility] Outpatient Encounter [id number] _MAPID :3 03/18/2020 JIM Sanchez [facility] OFFICE/OUT PATIENT VISIT EST [id number] ICD-10 -CM F33.1 Major depressive disorder, recurrent, moderate with Provider Comments: Major Depressive Disorder,Recurrent,Moderate SANTIAGO SORIA S 03/19/2020 JIM Sanchez [facility] OFFICE/OUT [place] [id number] ICD-10 -CM F33.1 Major depressive disorder, recurrent, moderate with Provider Comments: Major Depressive Disorder,Recurrent,Moderate SANTIAGO SORIA S 03/19/2020 [facility] Procedures No Data Provided for This Section Social History Combined list of available smoking, tobacco, and 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 The included entrie s comply with the patient's data sharing authorizations. Social History Type Response Date Comment Source Tobacco smoking status NHIS VA-TOBACCO QUIT 5 TO < 15 YRS 08/14/2019 [facility] History of tobacco use VA-TO BACCO FORMER USER 08/14/2019 [facility] History of tobacco use CURRE NT NON-SMOKER 06/20/2018 [facility] History of tobacco use LIFET ELIZA NON-TOBACCO USER 06/20/2018 [facility] History of tobacco use NON-T OBACCO USER 06/18/2017 [facility] History of tobacco use NON-T OBACCO USER 08/05/2016 [facility] History of tobacco use NON-T OBACCO USER 05/15/2015 [facility] History of tobacco use NON-T OBACCO USER 06/11/2014 [facility] History of tobacco use NON-T OBACCO USER 07/05/2013 [facility] History of tobacco use CURRE NT TOBACCO USER 07/08/2012 [facility] History of tobacco use TOBAC CO OFFERED STOP SMOKING MEDS 07/08/2012 No, not willing to quit now [facility] History of tobacco use TOBAC CO OFFERED STOP SMOKING CLINIC 07/08/2012 No, not willing to quit now [facility] History of tobacco use NON-T OBACCO USER 06/08/2012 [facility] This section is an empty social history section. [facility] Assessment and Plan No Data Provided for This Section Plan of Care Date/Time Care Activity Care Activity Detail Facility 03/28/2020 AMBULATORY - PSYCHI ATRY AMBULATORY - PSYCHIATRY PATRICIA العراقي [facility] 03/19/2020 AMBULATORY - PSYCHI ATRY AMBULATORY - PSYCHIATRY PATRICIA S [facility] 03/19/2020 AMBULATORY - MEDICI NE AMBULATORY - MEDICINE JIM DAVILA [facility] Family History No Data Provided for This Section Advance Directives No Data Provided for This Section Functional Status No Data Provided for This Section
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
--- OUTSIDE RECORDS SUMMARY | 2020-03-19 22:13 | XMS REPORT | Encounter Summary ---
Author Author Department [facility] [place] Organization Department of [facility] Address [address] [place] [address] Phone Unavailable Care Team Providers Care Dispute Resolution Specialist Name Role Phone JACOB CRAIG PCP Unavailable Insurance Providers: All historical and current No Data Provided for This Section Selected Encounter This section includes the information on record at [place] for the Encounter. Date/Time Encounter Type Encounter Description Reason Provider Source Dec 19, 2019 08:30 AM OFFICE/OUTPATIENT VISIT EST TELEPHONE MH ICD-10-CM F33.1 Major depressive disorder, recurrent, moderate with Provider Comments: Major Depressive Disorder,Recurrent,Moderate SANTIAGO SORIA [facility] IHE Encounter Template Text not used by [place] Assessments - Encounter Diagnoses This section includes the primary and secondary diag noses documented for the Encounter. Date/Time Primary/Secondary Diagnosis Diagnosis Name Provider Source Dec 19, 2019 08:30 AM PRIMARY Major depressive disorder, recurrent, moderate LIZETTE NAIDU [facility] Dec 19, 2019 08:30 AM SECONDARY Other stimulant dependence , in remission LIZETTE NAIDU [facility] Dec 19, 2019 08:30 AM SECONDARY Post-traumatic stress diso rder, chronic LIZETTE NAIDU [facility] Plan of Treatment: Future Appointments (+ 6 months) and Future Tests (+/- 45 day s) The Plan of Treatment section includes future care activities for the patient fr om all [place] treatment facilities. This section includes future appointments and fu ture orders which are active, pending or scheduled. Future Appointments This section includes appointments that were scheduled t o occur 6 months from the date of the Encounter, up to a maximum of 20 appointme nts. The data comes from all [place] treatment facilities. Appointment Date/Time Appointment Type Appointment Facili ty Name Mar 19, 2020 10:00 AM AMBULATORY - PSYCHIATRY JIM DAVILA [facility] Mar 19, 2020 10:01 AM AMBULATORY - PSYCHIATRY [facility] Mar 28, 2020 01:30 PM AMBULATORY - MEDICINE [facility] Procedures: All associated to the encounter [...] patient. The data comes from a ll [place] treatment facilities. It does not list Allergies/ADRs that were removed or entered in error. Some allergies/ADRs may be reported in t Immunization section. Allergen Event Date Event Type Reaction(s) Severity Source No Known Allergies [facility], VISN 15 No Allergy Assessment on File [facility] Medications: VA dispensed (-15 months) and Non-VA Documented (Obtained Outside A) Section Date Range: 1) prescriptions processed by a [place] pharmacy in the last 15 m ont, and 2) all medications recorded in the [place] medical record as "non-VA medic ations". Pharmacy terms refer to [place] pharmacy's work on prescriptions. [place] patient s are advised to take their medications as instructed by their health care team. The data comes from all [place] treatment facilities. Glossary of Pharmacy Terms:Active = A prescription that can be filled at the local [place] pharmacy.Active: On Hold = An active prescription that will not be filled until pharmacy resolves the issue.Active: Susp = An active prescription that is not scheduled to be filled yet.Clinic Order = A medication received during a visit to a [place] clinic or emergency department (currently not available).Discontinued [...] may be a prescription from either the [place] or other providers that was filled outside the [place]. Or, it may be an over the [...] PAIN/WEAKNESS TO YOUR PROVIDER January 05, 2021 [id number] Mar 26, 2020 JACOB CRAIG CBO C ATORVASTATIN CA 20MG TAB Discontinued TAKE ONE-HALF T ABLET BY MOUTH EVERY OTHER DAY FOR CHOLESTEROL - REPORT ANY UNEXPLAINED MUSCLE PAIN/WEAKNESS TO YOUR PROVIDER Mar 15, 2020 [id number] Sep 03, 2019 JACOB CRAIG [facility] ATORVASTATIN CA 20MG TAB Discontinued TAKE ONE-HALF T ABLET BY MOUTH EVERY OTHER DAY FOR CHOLESTEROL - REPORT ANY UNEXPLAINED MUSCLE PAIN/WEAKNESS TO YOUR PROVIDER Oct 18, 2019 [id number] Mar 17, 2019 JACOB CRAIG [facility] FISH OIL 1000MG (500MG DHA/EPA) CAP,ORAL Non-VA TAKE 2 CAPSULES BY MOUTH ONCE A DAY Non-VA Documented by: CARLOS BREWER at: [facility] FLUOXETINE HCL 20MG CAP Active: Susp TAKE 3 CAPSULES BY MOUTH EVERY MORNING FOR MOOD. 270 Dec 19, 2020 [id number] Jun 07, 2020 SANTIAGO SORIA [facility] FLUOXETINE HCL 20MG CAP Discontinued TAKE TWO CAPSULE S BY MOUTH EVERY MORNING FOR MOOD. 180 Sep 19, 2020 [id number] Dec 09, 2019 SANTIAGO SORIA [facility] FLUOXETINE HCL 20MG CAP Discontinued TAKE 1 CAPSULE B Y MOUTH EVERY MORNING FOR 2 WEEKS THEN TAKE 2 CAPSULES BY MOUTH EVERY MORNING FOR MOOD. 166 Sep 19, 2020 [id number] Sep 20, 2019 SANTIAGO SORIA [facility] FLUOXETINE HCL 20MG CAP Discontinued TAKE TWO CAPSULE S BY MOUTH EVERY MORNING FOR MOOD. PATIENT NEEDS TO FOLLOW UP WITH REGULAR PROVIDER TO GET FURTHER REFILL. 180 Jun 12, 2019 [id number] Mar 14, 2019 ASH MCDERMOTT [facility] FLUTICASONE PROPIONATE 50MCG/SPRAY SOLN,NASAL,16GM Active INSTILL 2 SPRAYS IN EACH NOSTRIL ONCE A DAY SHAKE GENTLY BEFORE USE! - MUST BE USED DIRECTED FOR 3 WEEKS TO PROVIDE BENEFIT. * NO EARLY REFILLS * 1UNIT = 30DAYS AT 4 PF/DAY OR 60DAYS AT 2PF/DAY 3 Sep 19, 2020 [id number] Feb 26, 2020 JACOB CRAIG FLUTICASONE PROPIONATE 50MCG/SPRAY SOLN,NASAL,16GM Discontin ued INSTILL 2 SPRAYS IN EACH NOSTRIL ONCE A DAY SHAKE GENTLY BEFORE USE! - MUST BE USED DIRECTED FOR 3 WEEKS TO PROVIDE BENEFIT. * NO EARLY REFILLS * 1UNIT = 30DAYS AT 4 PF/DAY OR 60DAYS AT 2PF/DAY 3 Mar 03, 2020 [id number] Sep 19, 2019 KHRIS CRAIG IBUPROFEN 200MG TAB Non- VA TAKE ONE TABLET BY MOUTH TWO TIMES A DAY NEEDED Non-VA Documented by: JACOB CRAIG Docume nted at: [facility] OMEPRAZOLE 20MG CAP,EC Active: Susp TAKE ONE CAPSULE BY MOUTH EVERY MORNING TO LOWER STOMACH ACID. TAKE 30 MINUTES PRIOR TO FOOD. 90 Sep 08, 2020 [id number] May 26, 2020 JACOB CRAIG OMEPRAZOLE 20MG CAP,EC TAKE ONE CAPSULE BY MOUTH EVERY MORNING TO LOWER STOMACH ACID. TAKE 30 MINUTES PRIOR TO FOOD. 90 Jan 27, 2019 [id number] January 03, 2019 JACOB CRAIG SILDENAFIL CITRATE 50MG TAB Active TAKE ONE-HECTOR F TABLET BY MOUTH DIRECTED FOR ERECTILE DYSFUNCTION. ONE HOUR BEFORE SEXUAL ENCOUNTER *DO NOT TAKE MORE THAN 1 DOSE A DAY* 4 DOSES PER 30 DAYS ONLY! 2 Aug 31, 2020 [id number] January 20, 2020 JACOB CRAIG SILDENAFIL CITRATE 50MG TAB Discontinued TAKE ONE-HECTOR F TABLET BY MOUTH DIRECTED FOR ERECTILE DYSFUNCTION. ONE HOUR BEFORE SEXUAL ENCOUNTER *DO NOT TAKE MORE THAN 1 DOSE A DAY* 4 DOSES PER 30 DAYS ONLY! 2 Mar 15, 2020 [id number] Aug 03, 2019 JACOB CRAIG SILDENAFIL CITRATE 50MG TAB Discontinued TAKE ONE-HECTOR F TABLET BY MOUTH DIRECTED FOR ERECTILE DYSFUNCTION. ONE HOUR BEFORE SEXUAL ENCOUNTER *DO NOT TAKE MORE THAN 1 DOSE A DAY* 4 DOSES PER 30 DAYS ONLY! 2 Aug 12, 2019 [id number] January 19, 2019 JACOB CRAIG SUMATRIPTAN SUCCINATE 25MG TAB Active TAKE ONE TABLET BY MOUTH DIRECTED FOR MIGRAINE. TAKE AT ONSET OF HEADACHE. MAY REPEAT AFTER 2 HOURS. NOT TO EXCEED 2 TABLETS IN 24 HOURS. 9 Jan 23, 2021 [id number] Feb 13, 2020 KHRIS RCAIG [facility] SUMATRIPTAN SUCCINATE 25MG TAB Discontinued TAKE ONE TABLET BY MOUTH DIRECTED FOR MIGRAINE. TAKE AT ONSET OF HEADACHE. MAY REPEAT AFTER 2 HOURS. NOT TO EXCEED 2 TABLETS IN 24 HOURS. 9 Sep 19, 2020 [id number] Oct 10, 2019 EAMON CRAIG TERBINAFINE HCL 1% CREAM,TOP APPLY LIGHT LY TO AFFECTED AREA TWO TIMES A DAY FOR INFECTION 60 Feb 16, 2020 [id number] Sep 19, 2019 JACOB CRAIG [facility] TERBINAFINE HCL 250MG TAB TAKE ONE TABLET BY MOUTH ONC E A DAY 90 Feb 16, 2020 [id number] May 11, 2019 JACOB CRAIG [facility] TESTOSTERONE 1.62% 20.25MG/PUMP GEL,TOP Discontinued APPLY 4 PUMPS (81MG) ON SKIN EVERY MORNING DIRECTED - FOR HORMONE REPLACEMENT- APPLY TO CLEAN DRY INTACT SKIN OF SHOULDERS OR UPPER ARMS 2 Sep 21, 2019 [id number] Ia c 2018 VANNESSA CARPIO [facility] TESTOSTERONE 1.62% 20.25MG/PUMP GEL,TOP APPLY 4 PUMPS (81MG) ON SKIN EVERY MORNING DIRECTED - FOR HORMONE REPLACEMENT- APPLY TO CLEAN DRY INTACT SKIN OF SHOULDERS OR UPPER ARMS 2 Mar 16, 2020 [id number] Feb 07, 020 [facility] TESTOSTERONE 1.62% 20.25MG/PUMP GEL,TOP APPLY 4 PUMPS (81MG) ON SKIN ONCE A DAY - FOR HORMONE REPLACEMENT- APPLY TO CLEAN DRY INTACT SKIN OF SHOULDERS OR UPPER ARMS. USE EVERY MORNING DIRECTED 2 Mar 17 2 019 [id number] Feb 20, 2019 VANNESSA CARPIO [facility] TRIAMCINOLONE ACETONIDE 0.5% CREAM,TOP Discontinued A PPLY SPARINGLY TO AFFECTED AREA TWO TIMES A DAY NEEDED FOR RASH 45 Aug 12, 2019 [id number] J 2018 JACOB CRAIG [facility] TRIAMCINOLONE ACETONIDE 0.5% CREAM,TOP A PPLY SPARINGLY TO AFFECTED AREA TWO TIMES A DAY NEEDED FOR RASH 45 Mar 03, 2020 [id number] Jun JACOB CRAIG CBSHELIA VALACYCLOVIR HCL 500MG TAB TAKE ONE TABL ET BY MOUTH TWO TIMES A DAY NOTE-THIS MEDICATION IS NOT FOR SODA DRY HOUSE OPERATOR USE... 10 Oct 18, 2019 [id number] Sep 19, 2019 JACOB CRAIG Problems (Conditions): All historical and current Section Date Range: From patient's date of to the date document was create d. This section includes a list of Problems (Conditions) know n to [place] for the patient. It includes both active and inacti ve problems (conditions). The data comes from all [place] treatment facilities. Problem Status Problem Code Date of Onset Date of Resolution Comm ent(s) Provider Source Amphetamine Dependence (ICD-9-CM 304.40) Active 304.40 [facility] Cat bite - wound (SNOMED CT 249341003) Active 879.8 [facility] Chronic post-traumatic stress disorder (SNOMED CT 058978544) Active [id number] KALLI COLLINS [facility] Depression * (ICD-9-CM 311.) Active 311. [facility] Environmental Allergies Active 477.9 Win [facility] Fatigue Active [id number] [facility] Headaches * (ICD-9-CM 784.0) Active 784.0 JACOB [facility] Hearing loss * (ICD-9-CM 389.9) Active 389.9 JACOB CRAIG [facility] Hyperlipidemia (SNOMED CT 81851571) Active 272.4 JACOB [facility]IG [facility] Moderate recurrent major depression (SNOMED CT 61114248) Active 188 53481 KALLI COLLINS [facility] Other, mixed, or unspecified drug abuse (ICD-9-CM 305.90) Active 30 5.90 JACOB CRAIG [facility] Subjective Tinnitus Active 388.31 AMAURI REEDER Andrey [facility] Unspecified condition of brain (ICD-9-CM 348.9) Active 348.9 JACOB CRAIG [facility] Radiology Reports: +/- 30 days of the encounter No Data Provided for This Section Pathology Reports: +/- 30 days of the encounter No Data Provided for This Section Encounter Notes: All associated encounter notes This section contains the clinical notes associated to the Encounter. Date/Time Encounter Note(s) Provider Source Dec 19, 2019 08:44 AM MENTAL HEALTH NOTE: LOCAL TITLE: [facility] PROVIDER FOLLOW-UP STANDARD TITLE: MENTAL HEALTH NOTE DATE OF NOTE: DEC 19, 2019@08:44 ENTRY DATE: DEC 19, 2019@08:44:46 AUTHOR: SANTIAGO SORIA COSIGNER: URGENCY: STATUS: COMPLETED Progress Note Active Outpatient Medications (including Supplies): Outpatient Medications Status 1) ATORVASTATIN CALCIUM 20MG TAB TAKE ONE-HALF TABLET BY ACTIVE MOUTH EVERY OTHER DAY FOR CHOLESTEROL - REPORT ANY UNEXPLAINED MUSCLE PAIN/WEAKNESS TO YOUR PROVIDER 2) FLUOXETINE HCL 20MG CAP TAKE TWO CA PSULES BY MOUTH ACTIVE EVERY MORNING FOR MOOD. 3) FLUTICASONE PROP 50MCG 120D NASAL I NHL INSTILL 2 ACTIVE (S) SPRAYS IN EACH NOSTRIL ONCE A DAY SHAKE GENTLY BEFORE USE! - MUST BE USED DIRECTED FOR 3 WEEKS TO PROVIDE BENEFIT. * NO EARLY REFILLS * 1UNIT = 30DAYS AT 4 PF/DAY OR 60DAYS AT 2PF/DAY 4) OMEPRAZOLE 20MG EC CAP TAKE ONE CAP ADELIA BY MOUTH ACTIVE (S) EVERY MORNING TO LOWER STOMACH ACID. TAKE 30 MINUTES PRIOR TO FOOD. 5) SILDENAFIL CITRATE 50MG TAB TAKE ON E-HALF TABLET BY ACTIVE (S) MOUTH DIRECTED FOR ERECTILE DYSFUNCTION. ONE HOUR BEFORE SEXUAL ENCOUNTER *DO NOT TAKE MORE THAN 1 DOSE A DAY* 4 DOSES PER 30 DAYS ONLY! 6) SUMATRIPTAN SUCCINATE 25MG TAB TAKE ONE TABLET BY ACTIVE MOUTH DIRECTED FOR MIGRAINE. TAKE AT ONSET OF HEADACHE. MAY REPEAT AFTER 2 HOURS. NOT TO EXCEED 2 TABLETS IN 24 HOURS. 7) TERBINAFINE HCL 1% CREAM APPLY LIGH TLY TO AFFECTED ACTIVE AREA TWO TIMES A DAY FOR INFECTION 8) TERBINAFINE HCL 250MG TAB TAKE ONE TABLET BY MOUTH ACTIVE ONCE A DAY 9) TESTOSTERONE 1.62% 20.25MG/PUMP TOP GEL APPLY 4 PUMPS ACTIVE (S) (81MG) ON SKIN EVERY MORNING DIRECTED - FOR HORMONE REPLACEMENT- APPLY TO CLEAN DRY INTACT SKIN OF SHOULDERS OR UPPER ARMS 10) TRIAMCINOLONE 0.5% CR APPLY SPARING LY TO AFFECTED ACTIVE AREA TWO TIMES A DAY NEEDED FOR RASH Non-VA Medications Status 1) Non-VA FISH OIL 1000MG (500MG DHA/E PA) CAP 2000MG ACTIVE MOUTH ONCE A DAY 2) Non-VA IBUPROFEN 200MG TAB 200MG MO UTH TWO TIMES A ACTIVE DAY NEEDED 12 Total Medications Compared newly ordered medications and medication changes to active medications and non-VA medications, and then reviewed medications with patient and/or caregiver. All discrepancies noted and reconciled. Patients, or caregivers, was provided with reconciled medications list and advised to provide to all non VA providers. Potential adverse reactions of new medications were discussed with the patient. Medication Reconciliation Are there any OTC medications, vitamins or herbal supplements in use but not listed? No Are there any prescription meds in use that are not listed? No Are there any medications no longer in use, or on hold? No The undersigned has discussed active and pending medications with the patient and/or caregiver. Changes have been made as appropriate. Yes Allergies reviewed, edited in CPRS as appropriate and confirmed by patient: Yes Patient/family/caregiver educated on the active and pending outpatient medication list. The list was reviewed with and given to the patient/family/caregiver upon discharge from clinic. Patient/family/caregiver educated on importance of sharing medication list with all [place] providers and non-VA providers Discrepancies reported by the patient referred to prescribing physician. Physician notified via additional signer N/A MEDICATION CHECK: 30 minutes including 16 minutes psychotherapy Patient's appointment completed by telephone per patient's request due to coronavirus social distancing restrictions. Patient's Behavioral Health notes and other CPRS notes reviewed before appointment. Chief Complaint: "a week ago I increased my Prozac to 60mg.....the Prozac always helps.....it helps with my mood" Relevant History: "I'm staying well from the coronavirus"...."I'm in this crappy relationship...she's awful....I'm doing my best to get out of it.....I don't want to be in the relationship but I'm stuck until my lease runs out in March" "I just got a call my dad's blood work came back and his kidney function is way low....they're rushing him to [place] to the ER ....he might need to go on dialysis" "a week ago I increased my Prozac to 60mg.....the Prozac always helps.....it helps with my mood.....I feel better on Prozac.....it relieves my depression and anxiety" Patient denies suicidal/homicidal ideation, intent, or plan. 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.....that way I can go out and be by myself and cut grass" Self harm: denies history of self mutilation Concentration/Focus: "terrible.....you tell me your name and I probably won't hear it....I don't read because I don't have any concentration" Memory: "short-term's pretty bad but I can remember when I was [age] years old" Financial concerns: "I'm okay" Education: reports is not going to school Social: " once long time ago"......"I have three boys.....during the summer my two youngest stay with me a lot"...."I am in a relationship now.....we're living together......I'm stuck in a lease with her.....I don't want to be in the relationship but I'm stuck until my lease runs out in March (2019)" Pain: "I get a lot of migraine headaches" SUBSTANCE HX: Illicit Drugs: denies currently "I haven't used drugs or alcohol in almost 7 1/2 years" Alcohol: "I haven't used drugs or alcohol in almost 7 1/2 years" Tobacco: denies Caffeine: "maybe one or two cups of coffee a day" PAST PSYCHOTROPIC MEDICATIONS: Prozac, Zoloft "Zoloft made me scatterbrained", trazodone "trazodone gave me restless legs" MEDICAL: a) Active Problem Chronic post-traumatic stress disorder (SNOMED CT 534820697) Depression * (ICD-9-CM 311.) Hearing loss * (ICD-9-CM 389.9) Other, mixed, or unspecified drug abuse (ICD-9-CM 305.90) Unspecified condition of brain (ICD-9-CM 348.9) Headaches * (ICD-9-CM 784.0) Amphetamine Dependence (ICD-9-CM 304.40) Moderate recurrent major depression (SNOMED CT 11322590) Subjective Tinnitus Hyperlipidemia (SNOMED CT 52896448) Cat bite - wound (SNOMED CT 702377677) Environmental Allergies Fatigue ALLERGIES: Patient has answered NKA MENTAL STATUS EXAM: Patient presents on time for his appointment. Alert and oriented to person, place, time, and situation. Denies suicidal/homicidal thoughts, intent, or plans. No psychomotor abnormalities. Speech clear and coherent. Language intact. Mood concerned about his Father's health. Thought process dramatic. Denies hallucinations. Denies paranoid delusions. Does not appear to be attending or responding to internal stimuli. Attention and concentration are adequate. Patient reports difficulty with short-term memory. Insight and judgment are poor. does not appear to be danger to self or others at this time. Diagnostic Impression based on DSM-5 criteria: Major Depressive Disorder, Recurrent, Moderate Posttraumatic Stress Disorder, Chronic Amphetamine Use Disorder in Remission Personality Disorder R/O Exposure to war/combat Social environment Target Symptoms/Goals for Treatment: Depression: Patient reports 80% reduction in depressive symptoms. (Goal in progress). Anxiety: Patient reports 80% improvement in managing anxiety. (Goal in progress). Irritability/Anger: Patient reports 80% reduction in mood lability. (Goal in progress). Insomnia: Normalization of sleep pattern. (Goal in progress). Plan: Increase Prozac per patient's request to help more with mood lability, PTSD symptoms, depression, anxiety, irritability/anger. Patient reports he increased Prozac to 60mg daily and requests to continue this dosage. Increase Prozac to 60mg po q am (take with food). INFORMED CONSENT: Medication options used to treat this patient's symptoms, the usual dose, the expected time course of treatment response, the risks, benefits, potential adverse effects were discussed. Patient verbalized understanding of instructions given, was given an opportunity to ask questions and expressed agreement with the treatment plan. Follow-up with PCP regarding physical health concerns. Psychotherapy Topics: Education on patient's diagnoses and benefits and side effects of psychotropic medications prescribed. General health management issues. Encouraged patient to work on healthy lifestyle including regular exercise, proper diet, and socialization. Discussed the adverse effects of using methamphetamine including paranoia, delusions and hallucinations, insomnia, anxiety, extreme aggression, increased heart rate, liver damage, convulsions, extreme rise in body temperature, which can cause brain damage, stroke, and even . Advised abstinence from methamphetamine. Discussed the negative side effects of alcohol consumption including that alcohol contributes to mood lability, depression, adverse physical health, and potential unsafe drug interactions when alcohol is taken with medications. Advised abstinence from alcohol. Return to clinic for telemed medication management follow[facility] at [facility] in 3 months per patient's request. Supportive listening provided. Education offered on mental health state/diagnosis and medications prescribed. Verbalizes understanding of medications including rationale, risks, benefits and potential side effects. Agrees to treatment plan. SAFETY PLAN: Call back to [facility] if mental health state worsens, experience suicidal ideation, problems develop with medication. Insured that patient has contact information: Phone numbers for [facility] Team nurse: [phone] ext [phone] and [facility] clinic nurses: [phone]. [facility] crisis walk-in clinic; 8:00-4:00pm National suicide prevention hotline: . /es/ SANTIAGO SORIA [employer] TUM[employer]ER-BC Signed: 12/19/2019 09:04 SANTIAGO SORIA [facility]
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
--- OUTSIDE RECORDS SUMMARY | 2020-03-19 22:13 | XMS REPORT | Encounter Summary ---
Author Author Department [facility] [place] Organization Department of [facility] Address [address] [place] [address] Phone Unavailable Care Team Providers Care Corrections Counselor Name Role Phone JACOB CRAIG PCP Unavailable Insurance Providers: All historical and current No Data Provided for This Section Selected Encounter This section includes the information on record at [place] for the Encounter. Date/Time Encounter Type Encounter Description Reason Provider Source Sep 19, 2019 09:30 AM OFFICE/OUTPATIENT VISIT [facility] - IND ICD-10-CM F33.1 Major depressive disorder, recurrent, moderate with Provider Comments: Major Depressive Disorder,Recurrent,Moderate SANTIAGO SORIA [facility] IHE Encounter Template Text not used by [place] Assessments - Encounter Diagnoses This section includes the primary and secondary diag noses documented for the Encounter. Date/Time Primary/Secondary Diagnosis Diagnosis Name Provider Source Sep 19, 2019 03:14 PM PRIMARY Major depressive disorder, recurrent, moderate [facility] Sep 19, 2019 03:14 PM SECONDARY Other stimulant dependence , in remission [facility] Sep 19, 2019 03:14 PM SECONDARY Post-traumatic stress diso rder, chronic [facility] Plan of Treatment: Future Appointments (+ 6 months) and Future Tests (+/- 45 day s) The Plan of Treatment section includes future care activities for the patient fr om all [place] treatment facilities. This section includes future appointments and fu ture orders which are active, pending or scheduled. Future Appointments This section includes appointments that were scheduled t o occur 6 months from the date of the Encounter, up to a maximum of 20 appointme nts. The data comes from all [facility]. Appointment Date/Time Appointment Type Appointment Facili ty Name Oct 18, 2019 02:00 PM AMBULATORY - PSYCHIATRY [facility] Oct 23, 2019 11:00 AM AMBULATORY - SURGERY [facility]IM DAV[facility] Nov 29, 2019 03:00 PM AMBULATORY - NONE [facility] Dec 19, 2019 08:30 AM AMBULATORY - PSYCHIATRY [facility] Mar 19, 2020 10:00 AM AMBULATORY - PSYCHIATRY J[facility] DAVILA [facility] Mar 19, 2020 10:01 AM AMBULATORY - PSYCHIATRY [facility] Active, Pending, and Scheduled Orders This section [...] the Encounter. The data comes from all [facility]. 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 Radiology Reports and Pathology Report s are provided separately, in subsequent sections. Lab Results This section contains the Chemistry/Hematology Results levi t were resulted 30 days before or 30 days after the date of the Encounter. Date/Time Source Result Type Result - Unit Interpretation Reference Range Comment Sep 19, 2019 08:30 AM [facility] TESTOSTERONE (,UT,EK) Specimen Type: SERUM No comment entered. TESTOSTERONE (,UT,EK) 180.25 ng/dL L 221 -871 Sep 19, 2019 08:30 AM [facility] CBC & DIFF Specimen Type: BLOOD No [...] % Sep 19, 2019 08:30 AM [facility] COMPREHENSIVE METABOLIC PA RADHIKA Specimen Type: PLASMA [...] >60 Sep 19, 2019 08:30 AM [facility] LIPID PROFILE(HDL,TRIG,CHO L,LDL) Specimen Type: PLASMA Comment: For eGFR: eGFR results >60 are imprecise. Many variables affect the calculated result. Interpretation of eGFR results >60 must be monitored over time. CHOLESTEROL 124 mg/dL 0-200 TRIGS 66 mg/dL 0-150 HDL-CHOLESTEROL 39 mg/dL L >40 LDL (CALC) 72 mg/dL 0-99.9 Sep 19, 2019 08:30 AM [facility] TSH Specimen Type: SERUM No comment entered. [...] patient. The data comes from a ll [place] treatment facilities. It does not list Allergies/ADRs that were removed or entered in error. Some allergies/ADRs may be reported in t he Immunization section. Allergen Event Date Event Type Reaction(s) Severity Source No Known Allergies [facility], VISN 15 No Allergy Assessment on File [facility] Medications: VA dispensed (-15 months) and Non-VA Documented (Obtained Outside A) Section Date Range: 1) prescriptions processed by a [place] pharmacy in the last 15 m ont, and 2) all medications recorded in the [place] medical record as "non-VA medic ations". Pharmacy terms refer to [place] pharmacy's work on prescriptions. [place] patient s are advised to take their medications as instructed by their health care team. The data comes from all [place] treatment facilities. Glossary of Pharmacy Terms:Active = A prescription that can be filled at the local [place] pharmacy.Active: On Hold = An active prescription that will not be filled until pharmacy resolves the issue.Active: Susp = An active prescription that is not scheduled to be filled yet.Clinic Order = A medication received during a visit to a [place] clinic or emergency department (currently not available).Discontinued [...] may be a prescription from either the [place] or other providers that was filled outside the [place]. Or, it may be an over the [...] PAIN/WEAKNESS TO YOUR PROVIDER January 05, 2021 [id number] Mar 26, 2020 JACOB CRAIG [facility] ATORVASTATIN CA 20MG TAB Discontinued TAKE ONE-HALF T ABLET BY MOUTH EVERY OTHER DAY FOR CHOLESTEROL - REPORT ANY UNEXPLAINED MUSCLE PAIN/WEAKNESS TO YOUR PROVIDER Mar 15, 2020 [id number] Sep 03, 2019 [facility] ATORVASTATIN CA 20MG TAB Discontinued TAKE ONE-HALF T ABLET BY MOUTH EVERY OTHER DAY FOR CHOLESTEROL - REPORT ANY UNEXPLAINED MUSCLE PAIN/WEAKNESS TO YOUR PROVIDER Oct 18, 2019 [id number] Mar 17, 2019 JACOB CRAIG [facility] FISH OIL 1000MG (500MG DHA/EPA) CAP,ORAL Non-VA TAKE 2 CAPSULES BY MOUTH ONCE A DAY Non-VA Documented by: CARLOS BREWER nted at: [facility] FLUOXETINE HCL 20MG CAP Active: Susp TAKE 3 CAPSULES BY MOUTH EVERY MORNING FOR MOOD. 270 Dec 19, 2020 [id number] Jun 07, 2020 [facility] FLUOXETINE HCL 20MG CAP Discontinued TAKE TWO CAPSULE S BY MOUTH EVERY MORNING FOR MOOD. 180 Sep 19, 2020 [id number] Dec 09, 2019 [facility] FLUOXETINE HCL 20MG CAP Discontinued TAKE 1 CAPSULE B Y MOUTH EVERY MORNING FOR 2 WEEKS THEN TAKE 2 CAPSULES BY MOUTH EVERY MORNING FOR MOOD. 166 Sep 19, 2020 [id number] Sep 20, 2019 [facility] FLUOXETINE HCL 20MG CAP Discontinued TAKE TWO CAPSULE S BY MOUTH EVERY MORNING FOR MOOD. PATIENT NEEDS TO FOLLOW UP WITH REGULAR PROVIDER TO GET FURTHER REFILL. 180 Jun 12, 2019 [id number] Mar 14, 2019 ASH MCDERMOTT JIM CarreroTatiana GIOVANNI [facility] FLUTICASONE PROPIONATE 50MCG/SPRAY SOLN,NASAL,16GM Active INSTILL 2 SPRAYS IN EACH NOSTRIL ONCE A DAY SHAKE GENTLY BEFORE USE! - MUST BE USED DIRECTED FOR 3 WEEKS TO PROVIDE BENEFIT. * NO EARLY REFILLS * 1UNIT = 30DAYS AT 4 PF/DAY OR 60DAYS AT 2PF/DAY 3 Sep 19, 2020 [id number] Feb 26, 2020 JACOB CRAIG FLUTICASONE PROPIONATE 50MCG/SPRAY SOLN,NASAL,16GM Discontin ued INSTILL 2 SPRAYS IN EACH NOSTRIL ONCE A DAY SHAKE GENTLY BEFORE USE! - MUST BE USED DIRECTED FOR 3 WEEKS TO PROVIDE BENEFIT. * NO EARLY REFILLS * 1UNIT = 30DAYS AT 4 PF/DAY OR 60DAYS AT 2PF/DAY 3 Mar 03, 2020 [id number] Sep 19, 2019 KHRIS CRAIG IBUPROFEN 200MG TAB Non- VA TAKE ONE TABLET BY MOUTH TWO TIMES A DAY NEEDED Non-VA Documented by: JACOB CRAIG Docume nted at: [facility] OMEPRAZOLE 20MG CAP,EC Active: Susp TAKE ONE CAPSULE BY MOUTH EVERY MORNING TO LOWER STOMACH ACID. TAKE 30 MINUTES PRIOR TO FOOD. 90 Sep 08, 2020 [id number] May 26, 2020 JACOB CRAIG OMEPRAZOLE 20MG CAP,EC TAKE ONE CAPSULE BY MOUTH EVERY MORNING TO LOWER STOMACH ACID. TAKE 30 MINUTES PRIOR TO FOOD. 90 Jan 27, 2019 [id number] January 03, 2019 JACOB CRAIG SILDENAFIL CITRATE 50MG TAB Active TAKE ONE-HECTOR F TABLET BY MOUTH DIRECTED FOR ERECTILE DYSFUNCTION. ONE HOUR BEFORE SEXUAL ENCOUNTER *DO NOT TAKE MORE THAN 1 DOSE A DAY* 4 DOSES PER 30 DAYS ONLY! 2 Aug 31, 2020 [id number] January 20, 2020 JACOB CRAIG SILDENAFIL CITRATE 50MG TAB Discontinued TAKE ONE-HECTOR F TABLET BY MOUTH DIRECTED FOR ERECTILE DYSFUNCTION. ONE HOUR BEFORE SEXUAL ENCOUNTER *DO NOT TAKE MORE THAN 1 DOSE A DAY* 4 DOSES PER 30 DAYS ONLY! 2 Mar 15, 2020 [id number] Aug 03, 2019 JACOB CRAIG SILDENAFIL CITRATE 50MG TAB Discontinued TAKE ONE-HECTOR F TABLET BY MOUTH DIRECTED FOR ERECTILE DYSFUNCTION. ONE HOUR BEFORE SEXUAL ENCOUNTER *DO NOT TAKE MORE THAN 1 DOSE A DAY* 4 DOSES PER 30 DAYS ONLY! 2 Aug 12, 2019 [id number] January 19, 2019 JACOB CRAIG [facility] SUMATRIPTAN SUCCINATE 25MG TAB Active TAKE ONE TABLET BY MOUTH DIRECTED FOR MIGRAINE. TAKE AT ONSET OF HEADACHE. MAY REPEAT AFTER 2 HOURS. NOT TO EXCEED 2 TABLETS IN 24 HOURS. 9 Jan 23, 2021 [id number] Feb 13, 2020 KHRIS CRAIG CBSHELIA SUMATRIPTAN SUCCINATE 25MG TAB Discontinued TAKE ONE TABLET BY MOUTH DIRECTED FOR MIGRAINE. TAKE AT ONSET OF HEADACHE. MAY REPEAT AFTER 2 HOURS. NOT TO EXCEED 2 TABLETS IN 24 HOURS. 9 Sep 19, 2020 [id number] Oct 10, 2019 EAMON CRAIG TERBINAFINE HCL 1% CREAM,TOP APPLY LIGHT LY TO AFFECTED AREA TWO TIMES A DAY FOR INFECTION 60 Feb 16, 2020 [id number] Sep 19, 2019 JACOB CRAIG TERBINAFINE HCL 250MG TAB TAKE ONE TABLET BY MOUTH ONC E A DAY 90 Feb 16, 2020 [id number] May 11, 2019 JACOB CRAIG [facility] TESTOSTERONE 1.62% 20.25MG/PUMP GEL,TOP Discontinued APPLY 4 PUMPS (81MG) ON SKIN EVERY MORNING DIRECTED - FOR HORMONE REPLACEMENT- APPLY TO CLEAN DRY INTACT SKIN OF SHOULDERS OR UPPER ARMS 2 Sep 21, 2019 [id number] De c 2018 VANNESSA CARPIO [facility] TESTOSTERONE 1.62% 20.25MG/PUMP GEL,TOP APPLY 4 PUMPS (81MG) ON SKIN EVERY MORNING DIRECTED - FOR HORMONE REPLACEMENT- APPLY TO CLEAN DRY INTACT SKIN OF SHOULDERS OR UPPER ARMS 2 Mar 16, 2020 [id number] Feb 07, 2 020 [facility] TESTOSTERONE 1.62% 20.25MG/PUMP GEL,TOP APPLY 4 PUMPS (81MG) ON SKIN ONCE A DAY - FOR HORMONE REPLACEMENT- APPLY TO CLEAN DRY INTACT SKIN OF SHOULDERS OR UPPER ARMS. USE EVERY MORNING DIRECTED Mar 17, 2 019 [id number] Feb 20, 2019 [facility] TRIAMCINOLONE ACETONIDE 0.5% CREAM,TOP Discontinued A PPLY SPARINGLY TO AFFECTED AREA TWO TIMES A DAY NEEDED FOR RASH 45 Aug 12, 2019 [id number] J 2018 JACOB CRAIG [facility] TRIAMCINOLONE ACETONIDE 0.5% CREAM,TOP A PPLY SPARINGLY TO AFFECTED AREA TWO TIMES A DAY NEEDED FOR RASH 45 Mar 03, 2020 [id number] Jun JACOB CRAIG [facility] VALACYCLOVIR HCL 500MG TAB TAKE ONE TABL ET BY MOUTH TWO TIMES A DAY NOTE-THIS MEDICATION IS NOT FOR CASE COORDINATOR USE... 10 Oct 18, 2019 [id number] Sep 19, 2019 JACOB CRAIG Problems (Conditions): All historical and current Section Date Range: From patient's date of to the date document was create d. This section includes a list of Problems (Conditions) know n to [place] for the patient. It includes both active and inacti ve problems (conditions). The data comes from all [place] treatment facilities. 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 [facility] Environmental Allergies Active 477.9 Win CRAIG [facility] Fatigue Active [id number] [facility] Headaches * (ICD-9-CM 784.0) Active 784.0 [facility] Hearing loss * (ICD-9-CM 389.9) Active 389.9 [facility] Hyperlipidemia (SNOMED CT 43488230) Active 272.4 [facility]OB [facility] Moderate recurrent major depression (SNOMED CT 71054208) Active 188 42186 KALLI COLLINS [facility] Other, mixed, or unspecified drug abuse (ICD-9-CM 305.90) Active 30 5.90 JACOB CRAIG [facility] Subjective Tinnitus Active 388.31 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 Date/Time Encounter Note(s) Provider Source Sep 19, 2019 09:40 AM MENTAL HEALTH NOTE: LOCAL TITLE: [facility] PROVIDER FOLLOW-UP STANDARD TITLE: MENTAL HEALTH NOTE DATE OF NOTE: SEP 19, 2019@09:40 ENTRY DATE: SEP 19, 2019@09:40:12 AUTHOR: SANTIAGO SORIA EXP COSIGNER: URGENCY: STATUS: COMPLETED Progress Note Active Outpatient Medications (including Supplies): Outpatient Medications Status 1) ATORVASTATIN CALCIUM 20MG TAB TAKE ONE-HALF TABLET BY ACTIVE MOUTH EVERY OTHER DAY FOR CHOLESTEROL - REPORT ANY UNEXPLAINED MUSCLE PAIN/WEAKNESS TO YOUR PROVIDER 2) FLUTICASONE PROP 50MCG 120D NASAL I NHL INSTILL 2 ACTIVE SPRAYS IN EACH NOSTRIL ONCE A DAY SHAKE GENTLY BEFORE USE! - MUST BE USED DIRECTED FOR 3 WEEKS TO PROVIDE BENEFIT. * NO EARLY REFILLS * 1UNIT = 30DAYS AT 4 PF/DAY OR 60DAYS AT 2PF/DAY 3) FLUTICASONE PROP 50MCG 120D NASAL I NHL INSTILL 2 PENDING SPRAYS IN EACH NOSTRIL ONCE A DAY SHAKE GENTLY BEFORE USE! - MUST BE USED DIRECTED FOR 3 WEEKS TO PROVIDE BENEFIT. * NO EARLY REFILLS * 1UNIT = 30DAYS AT 4 PF/DAY OR 60DAYS AT 2PF/DAY 4) OMEPRAZOLE 20MG EC CAP TAKE ONE CAP ADELIA BY MOUTH ACTIVE EVERY MORNING TO LOWER STOMACH ACID. TAKE 30 MINUTES PRIOR TO FOOD. 5) SILDENAFIL CITRATE 50MG TAB TAKE ON E-HALF TABLET BY ACTIVE MOUTH DIRECTED FOR ERECTILE [...] A DAY NOTE-THIS MEDICATION IS NOT FOR CASE COORDINATOR USE... Non-VA Medications Status 1) Non-VA FISH OIL 1000MG (500MG DHA/E PA) CAP 2000MG ACTIVE MOUTH ONCE A DAY 2) Non-VA IBUPROFEN 200MG TAB 200MG MO UTH TWO TIMES A ACTIVE DAY NEEDED 13 [...] notified via additional signer N/A MEDICATION CHECK: 45 minutes including 16 minutes psychotherapy Patient is seen by telemed at [facility]. Patient is aware that he has the option of being seen face to face. Patient was last seen for medication management follow-up on March 23, 2018. Patient's Behavioral Health notes and other CPRS notes reviewed before appointment. Chief Complaint: "my mood's crappy....I really need my Prozac....it's about the only thing that works for me" Relevant History: "I've been off of my Prozac for five, six, or seven months....it's been a long time" "my mood's crappy....I really need my Prozac....it's about the only thing that works for me" "my depression's 8/10 to 10/10.....I'm just withdrawn....I don't like to be around people.....I feel down" Patient denies suicidal/homicidal ideation, intent, or plan. 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 ....both were part-time jobs....I had to quit both jobs because I couldn't work with people" "I am in a relationship now.....we're living together......I'm stuck in a lease with her.....I don't want to be in the relationship but I'm stuck until my lease runs out in March" Compliance with treatment: patient reports "I've been off of my Prozac for five, six, or seven months....it's been a long time" Medication side effects: denies Reliability of historian: good Appetite: denies issues Leisure: "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[employer] 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.....that way I can go out and [...] Problem Chronic post-traumatic stress disorder (SNOMED CT 012503180) Depression * (ICD-9-CM 311.) Hearing loss * (ICD-9-CM 389.9) Other, mixed, or unspecified drug abuse (ICD-9-CM 305.90) Unspecified condition of brain (ICD-9-CM 348.9) Headaches * (ICD-9-CM 784.0) 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 MENTAL STATUS EXAM: Patient presents on time for his appointment. Alert and oriented to person, place, time, and situation. Displays good eye contact. Denies suicidal/homicidal thoughts, intent, or plans. No psychomotor abnormalities. Speech clear and coherent. Language intact. Mood/Affect dysphoric. Thought process guarded and dramatic. Denies hallucinations. Denies paranoid delusions. Does [...] Patient reports 80% reduction in depressive symptoms. Anxiety: Patient reports 80% improvement in managing anxiety. Irritability/Anger: Patient reports 80% reduction in mood lability. Insomnia: Normalization of sleep pattern. Plan: Restart Prozac per patient's request to treat mood lability, PTSD symptoms, depression, anxiety, irritability/anger. Patient requests to increase Prozac to 40mg daily like he was taking before he quit taking Prozac. Restart Prozac 20mg po q am x 2 weeks, then increase to 40mg po q am (take with food). INFORMED [...] clinic for telemed medication management follow-up at [facility] in 3 months per patient's request. Supportive listening provided. Education offered on mental health state/diagnosis and medications prescribed. Verbalizes understanding of medications including rationale, risks, benefits and potential side effects. Agrees to treatment plan. SAFETY PLAN: Call back to [facility] if mental health state worsens, experience suicidal ideation, problems develop with medication. Insured that patient has contact information: Phone numbers for [facility] Team nurse: [phone] ext [phone] and [facility] clinic nurses: [phone]. [facility] crisis walk-in clinic; 8:00-4:00pm National suicide prevention hotline: . /jessica/ SANTIAGO SORIA SENIOR CLINICAL [employer] PROGRAMMER-BC Signed: 09/19/2019 15:14 SANTIAGO SORIA [facility]
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
--- OUTSIDE RECORDS SUMMARY | 2020-03-19 22:13 | XMS REPORT | Encounter Summary ---
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 Date/Time Encounter Type Encounter Description Reason Provider Source Mar 19, 2020 10:00 AM OFFICE/OUTPATIENT VISIT EST [facility] - IND ICD-10-CM F33.1 Major depressive disorder, recurrent, moderate with Provider Comments: Major Depressive Disorder,Recurrent,Moderate SANTIAGO SORIA [facility] IHE Encounter Template Text not used by ID Assessments - Encounter Diagnoses This section includes the primary and secondary diag noses documented for the Encounter. Date/Time Primary/Secondary Diagnosis Diagnosis Name Provider Source Mar 19, 2020 10:50 AM PRIMARY Major depressive disorder, recurrent, moderate LIZETTE NAIDU [facility] Mar 19, 2020 10:50 AM SECONDARY Other stimulant dependence , in remission LIZETTE NAIDU [facility] Mar 19, 2020 10:50 AM SECONDARY Post-traumatic stress diso rder, chronic LIZETTE NAIDU [facility] Plan of Treatment: Future Appointments (+ 6 months) and Future Tests (+/- 45 day s) The Plan of Treatment section includes future care activities for the patient fr om all ID treatment facilities. This section includes future appointments and fu ture orders which are active, pending or scheduled. Future Appointments This section includes appointments that were scheduled t o occur 6 months from the date of the Encounter, up to a maximum of 20 appointme nts. The data comes from all ID treatment facilities. Appointment Date/Time Appointment Type Appointment Facili ty Name Mar 28, 2020 01:30 PM AMBULATORY - MEDICINE [facility] Surgical Procedures: All associated to the encounter [...] patient. The data comes from a ll ID treatment facilities. It does not list Allergies/ADRs that were removed or entered in error. Some allergies/ADRs may be reported in t he Immunization section. Allergen Event Date Event Type Reaction(s) Severity Source No Known Allergies [facility], VISN 15 No Allergy Assessment on File [facility] Medications: VA dispensed (-15 months) and Non-VA Documented (Obtained Outside V A) Section Date Range: 1) prescriptions processed by a ID pharmacy in the last 15 m ont, and 2) all medications recorded in the ID medical record as "non-VA medic ations". Pharmacy terms refer to ID pharmacy's work on prescriptions. VA patient s are advised to take their medications as instructed by their health care team. The data comes from all ID treatment facilities. Glossary of Pharmacy Terms:Active = A prescription that can be filled at the local ID pharmacy.Active: On Hold = An active prescription that will not be filled until pharmacy resolves the issue.Active: Susp = An active prescription that is not scheduled to be filled yet.Clinic Order = A medication received during a visit to a ID clinic or emergency department (currently not available).Discontinued [...] may be a prescription from either the ID or other providers that was filled outside the ID. Or, it may be an over the [...] PAIN/WEAKNESS TO YOUR PROVIDER January 05, 2021 [id number] Mar 26, 2020 JACOB CRAIG CBO C ATORVASTATIN CA 20MG TAB Discontinued TAKE ONE-HALF T ABLET BY MOUTH EVERY OTHER DAY FOR CHOLESTEROL - REPORT ANY UNEXPLAINED MUSCLE PAIN/WEAKNESS TO YOUR PROVIDER Mar 15, 2020 [id number] Sep 03, 2019 JACOB CRAIG [facility] ATORVASTATIN CA 20MG TAB Discontinued TAKE ONE-HALF T ABLET BY MOUTH EVERY OTHER DAY FOR CHOLESTEROL - REPORT ANY UNEXPLAINED MUSCLE PAIN/WEAKNESS TO YOUR PROVIDER Oct 18, 2019 [id number] Mar 17, 2019 JACOB CRAIG [facility] FISH OIL 1000MG (500MG DHA/EPA) CAP,ORAL Non-VA TAKE 2 CAPSULES BY MOUTH ONCE A DAY Non-VA Documented by: CARLOS BREWERed at: [facility] FLUOXETINE HCL 20MG CAP Active: Susp TAKE 3 CAPSULES BY MOUTH EVERY MORNING FOR MOOD. 270 Dec 19, 2020 [id number] Jun 07, 2020 SANTIAGO SORIA [facility] FLUOXETINE HCL 20MG CAP Discontinued TAKE TWO CAPSULE S BY MOUTH EVERY MORNING FOR MOOD. 180 Sep 19, 2020 [id number] Dec 09, 2019 SANTIAGO SORIA [facility] FLUOXETINE HCL 20MG CAP Discontinued TAKE 1 CAPSULE B Y MOUTH EVERY MORNING FOR 2 WEEKS THEN TAKE 2 CAPSULES BY MOUTH EVERY MORNING FOR MOOD. 166 Sep 19, 2020 [id number] Sep 20, 2019 SANTIAGO SORIA [facility] FLUOXETINE HCL 20MG CAP Discontinued TAKE TWO CAPSULE S BY MOUTH EVERY MORNING FOR MOOD. PATIENT NEEDS TO FOLLOW UP WITH REGULAR PROVIDER TO GET FURTHER REFILL. 180 Jun 12, 2019 [id number] Mar 14, 2019 ASH MCDERMOTT MaganTatiana DAVILA [facility] FLUTICASONE PROPIONATE 50MCG/SPRAY SOLN,NASAL,16GM Active INSTILL 2 SPRAYS IN EACH NOSTRIL ONCE A DAY SHAKE GENTLY BEFORE USE! - MUST BE USED DIRECTED FOR 3 WEEKS TO PROVIDE BENEFIT. * NO EARLY REFILLS * 1UNIT = 30DAYS AT 4 PF/DAY OR 60DAYS AT 2PF/DAY 3 Sep 19, 2020 [id number] Feb 26, 2020 JACOB CRAIG FLUTICASONE PROPIONATE 50MCG/SPRAY SOLN,NASAL,16GM Discontin ued INSTILL 2 SPRAYS IN EACH NOSTRIL ONCE A DAY SHAKE GENTLY BEFORE USE! - MUST BE USED DIRECTED FOR 3 WEEKS TO PROVIDE BENEFIT. * NO EARLY REFILLS * 1UNIT = 30DAYS AT 4 PF/DAY OR 60DAYS AT 2PF/DAY 3 Mar 03, 2020 [id number] Sep 19, 2019 KHRIS CRAIG [facility] IBUPROFEN 200MG TAB Non- VA TAKE ONE TABLET BY MOUTH TWO TIMES A DAY NEEDED Non-VA Documented by: JACOB CRAIG Docume nted at: [facility] OMEPRAZOLE 20MG CAP,EC Active: Susp TAKE ONE CAPSULE BY MOUTH EVERY MORNING TO LOWER STOMACH ACID. TAKE 30 MINUTES PRIOR TO FOOD. 90 Sep 08, 2020 [id number] May 26, 2020 JACOB CRAIG OMEPRAZOLE 20MG CAP,EC TAKE ONE CAPSULE BY MOUTH EVERY MORNING TO LOWER STOMACH ACID. TAKE 30 MINUTES PRIOR TO FOOD. 90 Jan 27, 2019 [id number] January 03, 2019 JACOB CRAIG SILDENAFIL CITRATE 50MG TAB Active TAKE ONE-HECTOR F TABLET BY MOUTH DIRECTED FOR ERECTILE DYSFUNCTION. ONE HOUR BEFORE SEXUAL ENCOUNTER *DO NOT TAKE MORE THAN 1 DOSE A DAY* 4 DOSES PER 30 DAYS ONLY! 2 Aug 31, 2020 [id number] January 20, 2020 JACOB CRAIG SILDENAFIL CITRATE 50MG TAB Discontinued TAKE ONE-HECTOR F TABLET BY MOUTH DIRECTED FOR ERECTILE DYSFUNCTION. ONE HOUR BEFORE SEXUAL ENCOUNTER *DO NOT TAKE MORE THAN 1 DOSE A DAY* 4 DOSES PER 30 DAYS ONLY! 2 Mar 15, 2020 [id number] Aug 03, 2019 JACOB CRAIG SILDENAFIL CITRATE 50MG TAB Discontinued TAKE ONE-HECTOR F TABLET BY MOUTH DIRECTED FOR ERECTILE DYSFUNCTION. ONE HOUR BEFORE SEXUAL ENCOUNTER *DO NOT TAKE MORE THAN 1 DOSE A DAY* 4 DOSES PER 30 DAYS ONLY! 2 Aug 12, 2019 [id number] January 19, 2019 JACOB CRAIG SUMATRIPTAN SUCCINATE 25MG TAB Active TAKE ONE TABLET BY MOUTH DIRECTED FOR MIGRAINE. TAKE AT ONSET OF HEADACHE. MAY REPEAT AFTER 2 HOURS. NOT TO EXCEED 2 TABLETS IN 24 HOURS. 9 Jan 23, 2021 [id number] Feb 13, 2020 KHRIS CRAIG SUMATRIPTAN SUCCINATE 25MG TAB Discontinued TAKE ONE TABLET BY MOUTH DIRECTED FOR MIGRAINE. TAKE AT ONSET OF HEADACHE. MAY REPEAT AFTER 2 HOURS. NOT TO EXCEED 2 TABLETS IN 24 HOURS. 9 Sep 19, 2020 [id number] Oct 10, 2019 EAMON CRAIG TERBINAFINE HCL 1% CREAM,TOP APPLY LIGHT LY TO AFFECTED AREA TWO TIMES A DAY FOR INFECTION 60 Feb 16, 2020 [id number] Sep 19, 2019 JACOB CRAIG TERBINAFINE HCL 250MG TAB TAKE ONE TABLET BY MOUTH ONC E A DAY 90 Feb 16, 2020 [id number] May 11, 2019 JACOB CRAIG TESTOSTERONE 1.62% 20.25MG/PUMP GEL,TOP Discontinued APPLY 4 PUMPS (81MG) ON SKIN EVERY MORNING DIRECTED - FOR HORMONE REPLACEMENT- APPLY TO CLEAN DRY INTACT SKIN OF SHOULDERS OR UPPER ARMS 2 Sep 21, 2019 [id number] De c 2018 VANNESSA CARPIO [facility] TESTOSTERONE 1.62% 20.25MG/PUMP GEL,TOP APPLY 4 PUMPS (81MG) ON SKIN EVERY MORNING DIRECTED - FOR HORMONE REPLACEMENT- APPLY TO CLEAN DRY INTACT SKIN OF SHOULDERS OR UPPER ARMS 2 Mar 16, 2020 [id number] Feb 07, 2 020 VANNESSA CARPIO [facility] TESTOSTERONE 1.62% 20.25MG/PUMP GEL,TOP APPLY 4 PUMPS (81MG) ON SKIN ONCE A DAY - FOR HORMONE REPLACEMENT- APPLY TO CLEAN DRY INTACT SKIN OF SHOULDERS OR UPPER ARMS. USE EVERY MORNING DIRECTED Mar 17, 2 019 [id number] Feb 20, 2019 VANNESSA CARPIO [facility] TRIAMCINOLONE ACETONIDE 0.5% CREAM,TOP Discontinued A PPLY SPARINGLY TO AFFECTED AREA TWO TIMES A DAY NEEDED FOR RASH 45 Aug 12, 2019 [id number] J 2018 JACOB CRAIG [facility] TRIAMCINOLONE ACETONIDE 0.5% CREAM,TOP A PPLY SPARINGLY TO AFFECTED AREA TWO TIMES A DAY NEEDED FOR RASH 45 Mar 03, 2020 [id number] Jun JACOB CRAIG [facility] VALACYCLOVIR HCL 500MG TAB TAKE ONE TABL ET BY MOUTH TWO TIMES A DAY NOTE-THIS MEDICATION IS NOT FOR SNF USE... 10 Oct 18, 2019 [id number] Sep 19, 2019 JACOB CRAIG Problems (Conditions): All historical and current Section Date Range: From patient's date of to the date document was create d. This section includes a list of Problems (Conditions) know n to VA for the patient. It includes both active and inacti ve problems (conditions). The data comes from all ID treatment facilities. Problem Status Problem Code Date of Onset Date of Resolution Comm ent(s) Provider Source Amphetamine Dependence (ICD-9-CM 304.40) Active 304.40 [facility] Cat bite - wound (SNOMED CT 258445872) Active 879.8 JACOB CRAIG [facility] Chronic post-traumatic stress disorder (SNOMED CT 034440708) Active 354040789 KALLI COLLINS [facility] Depression * (ICD-9-CM 311.) Active 311. JACOB VILLEDA Tatiana [facility] Environmental Allergies Active 477.9 Win CRAIG [facility] Fatigue Active 18131617 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 Date/Time Encounter Note(s) Provider Source Mar 19, 2020 10:14 AM MENTAL HEALTH NOTE: LOCAL TITLE: [facility] PROVIDER FOLLOW-UP STANDARD TITLE: MENTAL HEALTH NOTE DATE OF NOTE: MAR 19, 2020@10:14 ENTRY DATE: MAR 19, 2020@10:14:42 AUTHOR: SANTIAGO SORIA EXP COSIGNER: URGENCY: STATUS: COMPLETED Progress Note Active Outpatient Medications (including Supplies): Outpatient Medications Status 1) ATORVASTATIN CALCIUM 20MG TAB TAKE ONE-HALF TABLET BY ACTIVE MOUTH EVERY OTHER DAY FOR CHOLESTEROL - REPORT ANY UNEXPLAINED MUSCLE PAIN/WEAKNESS TO YOUR PROVIDER 2) FLUOXETINE HCL 20MG CAP TAKE THREE CAPSULES BY MOUTH ACTIVE (S) EVERY MORNING FOR MOOD. 3) FLUTICASONE PROP [...] TO EXCEED 2 TABLETS IN 24 HOURS. Non-VA Medications Status 1) Non-VA FISH OIL 1000MG (500MG DHA/E PA) CAP 2000MG ACTIVE MOUTH ONCE A DAY 2) Non-VA IBUPROFEN 200MG TAB 200MG MO UTH TWO TIMES A ACTIVE DAY NEEDED 8 Total Medications Compared newly ordered medications and [...] CHECK: 30 minutes including 16 minutes psychotherapy Patient is seen by telemed at [facility]. Patient is aware that he has the option of being seen face to face. Patient's Behavioral Health notes and other CPRS notes reviewed before appointment. Chief Complaint: "my mood's way better ....it's a lot better" Relevant History:"I'm staying well from the coronavirus" "my mood's way better ....it's a lot better"...."our relationship is going much better...she's Bipolar and she was able to get onto meds....I got a [employer] and moved her out to her parents two and a half months ago.....I moved her back in a week and a half ago....there's a big improvement with her on the meds....we're going to stay together" "my dad has spent a lot of time in the hospital...he's on the verge of being on dialysis....I think he needs to be on dialysis....he has to go to the emergency room like every two weeks.....he's just in really bad health....I've spent more time with my dad and mom.....they live a mile from me" "I'm not depressed....I handle my moods a lot better....I can still have some anxiety and get a little edgy but I take myself out of the situation and calm myself down" "I take 10mg of Melatonin and I still can't get to sleep....it's lost it's effectiveness......without anything sleep would be awful".....denies nightmares Patient denies suicidal/homicidal ideation, intent, or plan. 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.....that way I can go out and [...] me scatterbrained", trazodone "trazodone gave me restless legs", Melatonin MEDICAL: a) Active Problem Chronic post-traumatic stress disorder (SNOMED CT 608941369) Depression * (ICD-9-CM 311.) Hearing loss * (ICD-9-CM 389.9) Other, mixed, or unspecified drug abuse (ICD-9-CM 305.90) Unspecified condition of brain (ICD-9-CM 348.9) Headaches * (ICD-9-CM 784.0) Amphetamine Dependence (ICD-9-CM 304.40) Moderate recurrent major depression (SNOMED CT 23712726) Subjective Tinnitus Hyperlipidemia (SNOMED CT 25457028) Cat bite - wound (SNOMED CT 202235984) Environmental Allergies Fatigue ALLERGIES: Patient has answered NKA MENTAL STATUS EXAM: Patient presents on time for his appointment. Alert and oriented to person, place, time, and situation. Denies suicidal/homicidal thoughts, intent, or plans. No psychomotor abnormalities. Speech clear and coherent. Language intact. Patient is coooperative. Mood euthymic and affect pleasant. Thought process dramatic. Denies hallucinations. Denies paranoid delusions. Does not appear to be attending or responding to internal stimuli. Attention and concentration are adequate. Patient reports difficulty with short-term memory. Insight and judgment are fair. does not appear to be danger to self or others at this time. Diagnostic Impression based on DSM-5 criteria: Major Depressive Disorder, Recurrent, Moderate Posttraumatic Stress Disorder, Chronic Amphetamine Use Disorder in Remission Personality Disorder R/O Exposure to war/combat Social environment Target Symptoms/Goals for Treatment: Depression: Patient reports 80% reduction in depressive symptoms. (Goal met) Anxiety: Patient reports 80% improvement in managing anxiety. (Goal in progress) Irritability/Anger: Patient reports 80% reduction in mood lability. (Goal in progress) Insomnia: Normalization of sleep pattern. (Goal in progress) Plan: Continue Prozac to treat mood lability, PTSD symptoms, depression, anxiety, irritability/anger. Continue Prozac 60mg po q am (take with food). Patient reports he is taking OTC Melatonin 10mg to treat insomnia and it is not helping to relieve his insomnia. Instructed patient to discontinue Melatonin when he starts mirtazapine. Start mirtazapine to treat insomnia. Start mirtazapine 15mg 1/2 to 1 tab po q hs (take 30 minutes before bedtime). Discussed the potential for weight gain with taking mirtazapine. Encouraged patient to exercise on a regular basis and to watch simple carbohydrate and fat intake. INFORMED CONSENT: Medication options used to treat [...] with medications. Advised abstinence from alcohol. Return for [facility] or phone medication management follow-up in 3 months per patient's request. Supportive listening provided. Education offered on mental health state/diagnosis and medications prescribed. Verbalizes understanding of medications including rationale, risks, benefits and potential side effects. Agrees to treatment plan. SAFETY PLAN: Call back to [facility] if mental health state worsens, experience suicidal ideation, problems develop with medication. Insured that patient has contact information: Phone numbers for Red Team nurse: [phone] ext [phone] and [facility] clinic nurses: [phone]. [facility] crisis walk-in clinic; 8:00-4:00pm National suicide prevention hotline: . /es/ SANTIAGO SORIA [employer] Signed: 03/19/2020 10:50 SANTIAGO SORIA [facility]
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
--- OUTSIDE RECORDS SUMMARY | 2020-03-19 22:16 | XMS REPORT ---
Author Author Adrien Rodriguez Doctor Organization [facility] Address Unknown Phone Unavailable Care Team Providers Care Property Coordinator Name Role Phone Migration, Doctor Unavailable Unavailable PROBLEMS Type Condition ICD9-CM Code [id number] Code Onset Dates Condition S tatus SNOMED Code Problem Impacted cerumen 380.4 Active 180 71737 Problem Dermatophytosis of nail 110.1 Active 350655549 Problem Encounter for long-term (current) use of other medications V58.69 Active 734119175 Problem Unspecified infective otitis externa 380.10 Active 85409168 ALLERGIES No Information ENCOUNTERS Encounter Location Date Diagnosis [facility] [address] [address] Apr, Visit for TB skin test Z11.1 [facility] [address] [address] Mar, Visit for TB skin test Z11.1 [facility] [id number] [place] [phone] Oct, Dental examination Z01.20 [facility] [id number] [place] [address] [id number] Oct, Encounter for dental examina tion and cleaning without abnormal findings Z01.20 [facility] [id number] [place] [phone] Sep, Encounter for dental examina tion Z01.20 [facility] [id number] [place] [phone] Jul, [facility] [id number] [place] [address] [id number] May, Encounter for dental examina tion Z01.20 [facility] [address] [address] Nov, [facility] [address] [facility] [id number] [address] [place] [phone] Nov, [facility] [address] [facility] [id number] [address] [place] [phone] Apr, [facility] [address] [facility] [id number] [address] [place] [phone] Apr, [facility] [address] [place], [place] [phone] Mar, IMMUNIZATIONS No Known Immunizations SOCIAL HISTORY Never Assessed REASON FOR VISIT EMR-[facility] PLAN OF CARE VITAL SIGNS MEDICATIONS Medication Instructions Dosage Frequency Start Date End Date Duration S tatus Terbinafine 250 mg 1 tablet by Oral rou te 1 time per day for 90 day(s)for toe fungus Apr, Active Ibuprofen 200 mg take 1 tablet by Ora l route every 4 hours as needed with food Apr, Active Debrox 6.5 % 3 drop by Otic route 2 times per day for 4 da y(s) Apr, Active Eihhswfu-Vcclsgbns-ON 3.5-10,000-1 mg-unit/mL-% 4 drop by Otic route 4 times per day for 7 day(s) Apr, Active RESULTS No Results PROCEDURES No Known procedures INSTRUCTIONS MEDICATIONS ADMINISTERED No Known Medications
--- OUTSIDE RECORDS SUMMARY | 2020-03-19 22:16 | XMS REPORT ---
Author Author Adrien Rodriguez Doctor Organization [facility] Address Unknown Phone Unavailable Care Team Providers Care Ocean Lifeguard Name Role Phone Migration, Doctor Unavailable Unavailable PROBLEMS Type Condition ICD9-CM Code [id number] Code Onset Dates Condition S tatus SNOMED Code Problem Impacted cerumen 380.4 Active 180 13441 Problem Dermatophytosis of nail 110.1 Active 079956758 Problem Encounter for long-term (current) use of other medications V58.69 Active 273570372 Problem Unspecified infective otitis externa 380.10 Active 27027844 ALLERGIES No Information ENCOUNTERS Encounter Location Date Diagnosis [facility] [address] [address] Apr, Visit for TB skin test Z11.1 [facility] [address] [address] Mar, Visit for TB skin test Z11.1 [facility] [id number] [place] [address] [phone] Oct, Dental examination Z01.20 [facility] [id number] [place] [address] [phone] Oct, Encounter for dental examina tion and cleaning without abnormal findings Z01.20 [facility] [id number] [place] [id number] Sep, Encounter for dental examina tion Z01.20 [facility] [id number] [place] [phone] Jul, [facility] [id number] [place] [address] [id number] May, Encounter for dental examina tion Z01.20 [facility] [address] [address] Nov, [facility] [address] [facility] [id number] [address] [place] [phone] Nov, [facility] [address] [facility] [id number] [address] [place] [phone] Apr, [facility] [address] [facility] [id number] [address] [place] [phone] Apr, [facility] [address] [place], [place] [phone] Mar, IMMUNIZATIONS No Known Immunizations SOCIAL HISTORY Never Assessed REASON FOR VISIT EMR-[facility] PLAN OF CARE VITAL SIGNS MEDICATIONS Unknown Medications RESULTS No Results PROCEDURES No Known procedures INSTRUCTIONS MEDICATIONS ADMINISTERED No Known Medications
--- OUTSIDE RECORDS SUMMARY | 2020-03-19 22:16 | XMS REPORT ---
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
--- OUTSIDE RECORDS SUMMARY | 2020-03-19 22:16 | XMS REPORT ---
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 Info Not Available Non Drug Allergy Problems Problem Type Condition Code Onset Dates Condition Statu s Problem Encounter for long-term (current) use of other medicat ions V58.69 Active Problem Impacted cerumen 380.4 Active Problem Encounter for dental examination Z01.20 Active Assessment Encounter for dental examination Z01.20 Active Problem Dermatophytosis of nail 110.1 Acti ve Problem Unspecified infective otitis externa 380.10 Active Medications No Known Medications Procedures Procedure Coding System Code Date INTRAORL-PERIAPICAL 1 FILM 42593 CPT-4 D0220 Jun 05, 2015 INTRAORL-PERIAPICAL EA ADD FILM CPT-4 D0230 Jun 05, 2015 COMP ORAL EVALUATION - NEW/EST PT CPT-4 D0150 Jun 05, 2015 INTRAORL-PERIAPICAL EA ADD FILM CPT-4 D0230 Jun 05, 2015 INTRAORL-PERIAPICAL EA ADD FILM CPT-4 D0230 Jun 05, 2015 PROPHYLAXIS - ADULT CPT-4 D1110 Jun 05, 2015 BITEWINGS - FOUR FILMS CPT-4 D0274 Jun 05, 2 015 Vital Signs Date/Time: Jun 05, 2015 Blood Pressure Diastolic 89 mmHg Blood Pressure Systolic 111 mmHg Cardiac Monitoring Heart Rate 60 bpm Results No Known Results Summary Purpose [employer] Submission
--- OUTSIDE RECORDS SUMMARY | 2020-03-19 22:17 | XMS REPORT | Continuity of Care Document ---
Author Organization Unknown Address Unknown Phone Unavailable Allergies Active Description Code Type Severity Reaction Onset Reported/Identified Relationship to Patient Clinical Status Yes NKANo Known Allergies NKA Miscellaneous Allergy Mild N/A 01/29/2006 Yes No Known Drug Allergies [id number] Drug Allergy Unknown N/A 07/27/2016 Medications There is no data. Problems Date Dx Coded Attending Type Code Diagnosis Diagnosed By 06/30/2012 Ot 787.91 AL RRHEA 06/30/2012 Ot 789.06 ABD OMINAL PAIN, EPIGASTRIC 07/28/2016 JACOB DAN MD Ot J34 .2 DEVIATED NASAL SEPTUM 07/28/2016 JACOB DAN MD Ot J34 .3 HYPERTROPHY OF NASAL TURBINATES 07/28/2016 JACOB DAN MD Ot Z01.810 ENCOUNTER FOR PREPROCEDURAL CARDIOVASCUL 07/28/2016 JACOB DAN MD Ot Z01.811 ENCOUNTER FOR PREPROCEDURAL RESPIRATORY 07/28/2016 JACOB DAN MD Ot Z01.812 ENCOUNTER FOR PREPROCEDURAL LABORATORY E 07/28/2016 JACOB DAN MD Ot Z11 .2 ENCOUNTER FOR SCREENING FOR OTHER BACTER 07/31/2016 JACOB DAN MD Ot J34 .2 DEVIATED NASAL SEPTUM 07/31/2016 JACOB DAN MD Ot J34 .3 HYPERTROPHY OF NASAL TURBINATES 08/17/2016 JACOB DAN MD Ot J34 .2 DEVIATED NASAL SEPTUM 08/17/2016 JACOB DAN MD, Ot J34 .3 HYPERTROPHY OF NASAL TURBINATES Procedures There is no data. Results Test Result Range Complete blood count (CBC) with automate d white blood cell (WBC) differential - 07/27/16 12:10 Blood leukocytes automated count (number/volume) 6.8 10*3/uL 4.3-11.0 Blood erythrocytes automated count (number/volume) 5.45 10*6/uL 4.35-5.85 Venous blood hemoglobin measurement (mass/volume) 15.6 g/dL 13.3-17.7 Blood hematocrit (volume fraction) 44 % 40-54 Automated erythrocyte mean corpuscular volume 80 [ foz_us] 80-99 Automated erythrocyte mean corpuscular h emoglobin (mass per erythrocyte) 29 pg 25-34 Automated erythrocyte mean corpuscular h emoglobin concentration measurement (mass/volume) 36 g/dL 32-36 Automated erythrocyte distribution width ratio 12. 9 % 10.0- 14.5 Automated blood platelet count (count/volume) 263 10*3/uL 130-400 Automated blood platelet mean volume measurement 11.0 [foz_us] 7.4-10.4 Automated blood neutrophils/100 leukocytes 53 % 42-75 Automated blood lymphocytes/100 leukocytes 30 % 12-44 Blood monocytes/100 leukocytes 10 % 0-12 Automated blood eosinophils/100 leukocytes 6 % 0-10 Automated blood basophils/100 leukocytes 1 % 0-10 Blood neutrophils automated count (number/volume) 3.6 10*3 1.8-7.8 Blood lymphocytes automated count (number/volume) 2.0 10*3 1.0-4.0 Blood monocytes automated count (number/volume) 0. 7 10*3 0.0-1.0 Automated eosinophil count 0.4 10*3/uL 0 .0-0.3 Automated blood basophil count (count/volume) 0.0 10*3/uL 0.0-0.1 Whole blood basic metabolic panel - 12/16 12:10 Serum or plasma sodium measurement (moles/volume) 138 mmol/L 135-145 Serum or plasma potassium measurement (moles/volume) 4.2 mmol/L 3.6-5.0 Serum or plasma chloride measurement (moles/volume) 108 mmol/L 98-107 Carbon dioxide 19 mmol/L 21-32 Serum or plasma anion gap determination (moles/volume) 11 mmol/L 5-14 Serum or plasma urea nitrogen measurement (mass/volume ) 15 mg/dL 7-18 Serum or plasma creatinine measurement (mass/volume) 0.83 mg/dL 0.60-1.30 Serum or plasma urea nitrogen/creatinine mass ratio 18 NRG Serum or plasma creatinine measurement w ith calculation of estimated glomerular filtration rate > NRG Serum or plasma glucose measurement (mass/volume) 95 mg/dL 70-105 Serum or plasma calcium measurement (mass/volume) 9.4 mg/dL 8.5-10.1 Methicillin resistant Staphylococcus aur eus (MRSA) screening culture - 07/27/16 12:10 Methicillin resistant Staphylococcus aureus (MRSA) scr eening culture NEG NRG Encounters ACCT No. Visit Date/Time Discharge Status Pt. Type Provider Facility Loc./Unit Complaint [id number] 05/23/2019 09:50:00 05/23/2019 23:59:5 9 CLS Outpatient MANSI HARMAN Damian [facility] [id number] 07/31/2016 07:26:00 11:52:00 DIS Outpatient SY THOMPSON, JACOB Georges [facility] SDC DEVIATED SEPTUM, HYPERT ROPHY NASAL TURBINATES [id number] 07/27/2016 11:46:00 13:30:00 DIS Outpatient JACOB DAN MD [facility] PREOP DEVIATED SEPTUM, HYPERT ROPHY NASAL TURBINATES [id number] 06/30/2012 13:53:00 Document Registration
--- OUTSIDE RECORDS SUMMARY | 2020-03-19 22:17 | XMS REPORT ---
Author Adrien Smith [facility] Address [address] [place] [address] Care Team Providers Care It Consultant Name Role Phone MANSI HARMAN Unavailable PROBLEMS Type Condition ICD9-CM Code CDH05-ZT Code Onset Dates Condition S tatus SNOMED Code Problem Dermatophytosis of nail 110.1 Active 552175361 Problem Impacted cerumen 380.4 Active 180 95320 Problem Unspecified infective otitis externa 380.10 Active 75061905 Problem Encounter for long-term (current) use of other medications V58.69 Active [id number] ALLERGIES No Information ENCOUNTERS Encounter Location Date Diagnosis [place] [address] [phone] Apr, Visit for TB skin test Z11.1 [facility] [address] [id number] Mar, Visit for TB skin test Z11.1 [facility] [id number] [place] [phone] Oct, Dental examination Z01.20 [facility] [id number] [place] [id number] Oct, Encounter for dental examina tion and cleaning without abnormal findings Z01.20 [facility] [address] [place] [id number] [place] [id number] Sep, Encounter for dental examina tion Z01.20 [place] [address] [address] [place] [id number] [place] [id number] Jul, [facility] [address] [place] [id number] [place] [id number] May, Encounter for dental examina tion Z01.20 [place] [address] [address] [facility] [id number] [address] [place] [phone] 14 Nov, 2014 [facility] [address] [facility] [id number] [address] [place] [phone] Nov, [facility] [address] [facility] [id number] [address] [place] [phone] 15 Apr, 2012 [facility] [address] [facility] [id number] [address] [place] [phone] Apr, [facility] [address] [place], [place] [id number] Mar, IMMUNIZATIONS No Known Immunizations SOCIAL HISTORY Never Assessed REASON FOR VISIT tb---DBrefugiottSHANI PLAN OF CARE Activity Details Follow Up 48-72 hours Reason: VITAL SIGNS MEDICATIONS Unknown Medications RESULTS No Results PROCEDURES Procedure Date Ordered Result Body Site TB INTRADERMAL 2017-04-28 N/A TB INTRADERMAL TEST Apr 28, 2017 INSTRUCTIONS MEDICATIONS ADMINISTERED No Known Medications
== END 2020-03-19 17:16 | disposition home or self-care (01) ==
LOC: EDUNIT# 16:44 → ER 16:45
DX: S05.92XA Unspecified injury of left eye and orbit, initial encounter (principal); Z87.891 Personal history of nicotine dependence; W20.8XXA Other cause of strike by thrown, projected or falling object, initial encounter
CPT/HCPCS: 99282

== ENCOUNTER 2020-10-15 05:37 | Outpatient (RCR) | payer OTHER ==
[~2020-10-15] VITALS: Ht 175.3 cm; Wt 95.5 kg
[~2020-10-15 05:37] MED LIST changes: +CLC600T PO
== END 2020-10-15 14:14 | disposition home or self-care (01) ==
LOC: PREOP 05:37
PROVIDERS: ATTEND Otolaryngology Otolaryngology/Facial Plastic Surgery
DX: Z01.818 Encounter for other preprocedural examination (principal)

== ENCOUNTER 2021-05-27 05:30 | Outpatient (RCR) | payer OTHER ==
[~2021-05-27] VITALS: Ht 175.3 cm; Wt 95.5 kg
[~2021-05-27 05:30] MED LIST changes: +CALC600T91 PO; -CLC600T PO; +FLUO10CA29 PO; +MELA3CAP2 PO
== END 2021-05-27 09:49 | disposition home or self-care (01) ==
LOC: PREOP 05:30
PROVIDERS: ATTEND Otolaryngology Otolaryngology/Facial Plastic Surgery
DX: Z01.812 Encounter for preprocedural laboratory examination (principal); J34.3 Hypertrophy of nasal turbinates; Z20.822 Contact with and (suspected) exposure to COVID-19
CPT/HCPCS: 87635

== ENCOUNTER 2021-05-29 07:04 | Day surgery (SDC) | payer OTHER ==
[2021-05-29] VITALS (11 sets, daily range): BP systolic 106–137; BP diastolic 62–87
[~2021-05-29] VITALS: Ht 175 cm; Wt 95.5 kg
[2021-05-29] MEDS ORDERED: LACTATED RINGERS 1,000 ML IV PRN ×2 (07:15)
[2021-05-29] MEDS ORDERED: fentaNYL INJ 100 MCG/2 ML AMP ONE (08:06)
[2021-05-29] MEDS ORDERED: MIDAZOLAM 2 MG/2 ML (VERSED) VIAL IV ONE (08:15)
[2021-05-29] MEDS ORDERED: fentaNYL INJ 100 MCG/2 ML AMP IV ONE (08:15)
[2021-05-29] MEDS ORDERED: LIDOCAINE/EPI 1%-1:100,000 (XYLOCAINE) 20ML ONE (08:26)
[2021-05-29] MEDS ORDERED: PHENYLEPHRINE 0.5% NASAL SPR (NEO-SYNEPHRINE) REG ONE (08:26)
--- NOTE | 2021-05-29 08:50 | Progress Note-Pre Operative ---
Pre-Operative Progress Note H&P Reviewed The H&P was reviewed, patient examined and no changes noted. Date Seen by Provider: May 29, 2021 Time Seen by Provider: 08:30 Date H&P Reviewed: May 29, 2021 Time H&P Reviewed: 08:30 Pre-Operative Diagnosis: REcurrent Nasal Congestion, Crust-Right tympanic membrane JACOB DAN MD May 29, 2021 08:50
--- NOTE | 2021-05-29 08:51 | Progress Note-Post Operative ---
Post-Operative Progess Note Surgeon (s)/Digital Marketing Associate (s) Surgeon JACOB DAN MD Digital Marketing Associate n/a Pre-Operative Diagnosis REcurrent Nasal Congestion, Crust-Right tympanic membrane Post-Operative Diagnosis same Post-Op Procedure Note Date of Procedure: May 29, 2021 Name of Procedure Performed: Bilateral Partial REduction of the INferior Turbinates, EUA of Right EAr with REmoval of TM Crust Description & Findings Description and Findings: n/a Anesthesia Type get Estimated Blood Loss minimal Packing none. Specimen(s) collected/removed none JACOB DAN MD May 29, 2021 08:51
[2021-05-29] MEDS ORDERED: NS IV 1000 ML 1,000 ML IV SCH (09:00)
[2021-05-29] MEDS ORDERED: APAP 325 MG/10.15 ML LIQ (TYLENOL) UDC PO PRN (09:00)
[2021-05-29] MEDS ORDERED: HYDROcodone/APAP 5 MG/325 MG (LORTAB) TAB PO PRN (09:00)
[2021-05-29] MEDS ORDERED: GENT5DRO30 EACH EAR (10:24)
[2021-05-29] MEDS ORDERED: ACHD5005 PO (10:24)
--- NOTE | 2021-05-29 13:14 | Anesthesia-General Post-Op ---
General Patient Condition Mental Status/LOC: Same as Preop Cardiovascular: Satisfactory Nausea/Vomiting: Absent Respiratory: Satisfactory Pain: Controlled Complications: Absent Post Op Complications Complications None Follow Up Care/Instructions Patient Instructions None needed. Anesthesia/Patient Condition Patient Condition Patient is doing well, no complaints, stable vital signs, no apparent adverse anesthesia problems. No complications reported per nursing. YORDAN GOEL CRNA May 29, 2021 13:14
== END 2021-05-29 10:32 | disposition home or self-care (01) ==
LOC: SDC 07:04
PROVIDERS: ATTEND Otolaryngology Otolaryngology/Facial Plastic Surgery
DX: J34.3 Hypertrophy of nasal turbinates (principal); R09.81 Nasal congestion; R09.01 Asphyxia; R23.4 Changes in skin texture
CPT/HCPCS: 87081

== ENCOUNTER 2022-02-09 15:10 | Emergency (ER) | payer OTHER ==
[~2022-02-09] VITALS: Ht 175.3 cm; Wt 97.5 kg
[~2022-02-09 15:10] MED LIST changes: +GENT5DRO30 EACH EAR
--- NOTE | 2022-02-09 16:38 | ED General ---
General Chief Complaint: COVID19 Suspect/Confirmed Stated Complaint: WEAKNESS - HEADACHE Nursing Triage Note: PT AMB TO TRIAGE WITH COMPLAINT OF TIREDNESS, HEADACHE, FACIAL PRESSURE, AND DIZZINESS. STATES HAS BEEN GOING ON FOR A WEEK. STATES HAD NEGATIVE HOME COVID TEST. CONCERNED FOR HEAT EXHAUSTION History of Present Illness Date Seen by Provider: Feb 09, 2022 Time Seen by Provider: 16:34 Initial Comments Patient is a 51-year-old male with negative past medical history presents to the emergency department today with a chief complaint of headache, facial pressure, feeling dizzy, cramps in his muscles and generalized malaise onset over the course of the last 4 to 5 days. He thinks he might of gotten "heat exhaustion" as he was working outside quite a bit last Wednesday. He did not drink as much water as he normally does. He works in [employer]. He states that the cramping is in his "kidneys" and muscles was pretty intense not as bad now. No darker than normal urine, dysuria urgency or frequency. No chest pain or shortness of breath. No cough. He was here in the hospital 4 days ago as he just had a new born daughter. He is not COVID vaccinated. No known fevers. No sore throat. Initially when he came in today he rated his headache at a "9" but now it is a "4". He believes he may be dehydrated and is requesting IV fluids. All other review of systems reviewed and negative except as stated. Timing/Duration: 1 Week Severity: Moderate Associated Systoms: Headaches, Malaise, Weakness, Other ("Kidney pain") Allergies and Home Medications Allergies Coded Allergies: No Known Drug Allergies (Unverified , 07/27/16) Patient Home Medication List Home Medication List Reviewed: Yes Fluoxetine HCl (Prozac) Unknown Strength Capsule, Unknown Dose PO DAILY, (Reported) Entered as Reported by: DILCIA ZULUAGA on 05/01/21 1140 Gentamicin Sulfate (Gentamicin Sulfate) 5 Ml Drops, 3 DROPS EACH EAR BID Prescribed by: KATERINA MCDONALD on 05/29/21 1024 Hydrocodone/Acetaminophen (Hydrocodone-Acetamin 5-325 mg) 1 Each Tablet, 1 TAB PO Q4H PRN for PAIN-MODERATE (5-7) Prescribed by: KATERINA MCDONALD on 05/29/21 1024 Melatonin (Melatonin) 3 Mg Capsule, 6 MG PO HS, (Reported) Entered as Reported by: DILCIA ZULUAGA on 05/01/21 1140 Review of Systems Review of Systems Constitutional: see HPI EENTM: other (Facial pressure) Respiratory: short of breath (Minimal) Cardiovascular: no symptoms reported Gastrointestinal: no symptoms reported Genitourinary: no symptoms reported Musculoskeletal: back pain Skin: no symptoms reported Psychiatric/Neurological: Headache; Denies Numbness, Denies Paresthesia, Denies Weakness All Other Systems Reviewed Negative Unless Noted: Yes Past Kpkokil-Rsulss-Qshqah Hx Patient Social History Tobacco Use?: No Use of E-Cig and/or Vaping dev: No Substance use?: No Alcohol Use?: No Pt feels they are or have been: No Immunizations Up To Date Tetanus Booster (TDap): Unknown PED Vaccines UTD: Yes First/Initial COVID19 Vaccinat: NO Second COVID19 Vaccination Saúl: NO Seasonal Allergies Seasonal Allergies: No Past Medical History Surgeries: Yes (KIDNEY STONE SURGERY) Nose, Tonsillectomy Respiratory: No Sleep Apnea Cardiac: No Neurological: No Reproductive Disorders: No Sexually Transmitted Disease: No HIV/AIDS: No Genitourinary: Yes Kidney Stones Gastrointestinal: No Musculoskeletal: No Endocrine: No HEENT: No Loss of Vision: Denies Hearing Impairment: Denies Cancer: No Psychosocial: Yes Depression Integumentary: No Blood Disorders: No Adverse Reaction/Blood Tranf: No (N/A) Physical Exam Vital Signs Vital Signs - First Documented 02/09/22 15:21 Temp 37.6 Pulse 94 Resp 20 B/P (MAP) 151/100 (117) Pulse Ox 98 O2 Delivery Room Air Capillary Refill : Height, Weight, BMI Height: 5'9.00" Weight: 248lbs. 9.0oz. 112.414332za; 31.00 BMI Method:Stated General Appearance: No Apparent Distress, WD/WN Eyes: Bilateral Eye Normal Inspection, Bilateral Eye PERRL, Bilateral Eye EOMI HEENT: PERRL/EOMI, TMs Normal, Pharynx Normal, Other (Dry oral mucosa) Neck: Normal Inspection, Supple Respiratory: Lungs Clear, Normal Breath Sounds, No Accessory Muscle Use, No Respiratory Distress Cardiovascular: Regular Rate, Rhythm, Tachycardia (90's) Gastrointestinal: Normal Bowel Sounds, Non Tender, Soft Extremity: Normal Capillary Refill, Normal Inspection, Normal Range of Motion, Non Tender, No Calf Tenderness, No Pedal Edema Neurologic/Psychiatric: Alert, Oriented x3, No Motor/Sensory Deficits, Normal Mood/Affect Skin: Normal Color, Warm/Dry Progress/Results/Core Measures Suspected Sepsis SIRS Temperature: Pulse: 94 Respiratory Rate: 20 Blood Pressure 151 /100 Mean: 117 Results/Orders Lab Results Laboratory Tests Test 02/09/22 16:04 Range/Units Influenza Type A (RT-PCR) Not Detected Not Detecte Influenza Type B (RT-PCR) Not Detected Not Detecte SARS-CoV-2 RNA (RT-PCR) Not Detected Not Detecte My Orders Orders - GEETA PEARSON MD Covid 19 Inhouse Test (02/09/22 15:31) Influenza A And B By Pcr (02/09/22 15:31) Isolation Central Supply Req (02/09/22 15:31) Ed Iv/Invasive Line Start (02/09/22 16:33) Lactated Ringers (Lr 1000 Ml Iv Solution (02/09/22 16:45) Ketorolac Injection (Toradol Injection) (02/09/22 16:45) Vital Signs/I&O 02/09/22 02/09/22 15:21 18:24 Temp 37.6 Pulse 94 Resp 20 B/P (MAP) 151/100 (117) 145/89 Pulse Ox 98 O2 Delivery Room Air Capillary Refill : Blood Pressure Mean: 117 Progress Note : Time: 16:47 Progress Note COVID-negative. Will hydrate, recommend supportive care, return precautions given. Departure Impression Primary Impression: Viral syndrome Additional Impression: Mild dehydration Disposition: 01 HOME, SELF-CARE Condition: Stable Departure-Patient Inst. Decision time for Depature: 16:45 Referrals: [facility] NO,LOCAL PHYSICIAN (PCP) Primary Care Physician Patient Instructions: Dehydration, Adult ED, Headache, Adult (DC) Add. Discharge Instructions: Drink plenty of fluids to stay well-hydrated. You can take either ytwm-wqu-qajmxgo Aleve/naproxen 2 tablets twice daily with food as needed for headache or 600 mg of ibuprofen(3 pills of Advil or Motrin) every 6 hours as needed for headache. Always take these medications with food. Return to the emergency department if you have any fever, shortness of breath or any other new, emergent, concerning symptoms GEETA PEARSON MD Feb 09, 2022 16:38
[2022-02-09] MEDS ORDERED: KETOROLAC 30 MG/ML VIAL IVP ONE (16:45)
[2022-02-09] MEDS ORDERED: LACTATED RINGERS 1,000 ML IV SCH (16:45)
[2022-02-09 18:24] VITALS: BP 145/89
== END 2022-02-09 18:30 | disposition home or self-care (01) ==
LOC: EDUNIT# 15:10 → ER 15:11
DX: B34.9 Viral infection, unspecified (principal); E86.0 Dehydration; Z20.822 Contact with and (suspected) exposure to COVID-19; Z28.310 Unvaccinated for COVID-19
CPT/HCPCS: 87636; 96361; 96374

== ENCOUNTER 2022-05-11 13:53 | Emergency (ER) | payer OTHER ==
[~2022-05-11] VITALS: Ht 175.3 cm; Wt 99.8 kg
[2022-05-11] MEDS ORDERED: METH4TAB10 PO (14:17)
--- NOTE | 2022-05-11 14:17 | ED Upper Extremity ---
General Chief Complaint: Upper Extremity Stated Complaint: RT WRIST PAIN Nursing Triage Note: PT AMB TO TRIAGE WITH COMPLAINT OF RIGHT WRIST PAIN. STATES STARTED 2 WEEKS AGO. DENIES INJURY. STATES WORSENS THROUGHOUT THE DAY. Source: patient Exam Limitations: no limitations History of Present Illness Date Seen by Provider: May 11, 2022 Time Seen by Provider: 14:13 Initial Comments To ER with right wrist/forearm discomfort for about 3 weeks. He has been helping his dad up and down to the toilet for a few weeks and thinks that perhaps he injured it doing that but does not recall any particular injury. 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 Onset: just prior to arrival Severity: moderate Pain/Injury Location: right forearm, right wrist Method of Injury: unknown Modifying Factors: Worse With Movement Allergies and Home Medications Allergies Coded Allergies: No Known Drug Allergies (Unverified , 07/27/16) Patient Home Medication List Home Medication List Reviewed: Yes Fluoxetine HCl (Prozac) Unknown Strength Capsule, Unknown Dose PO DAILY, (Reported) Entered as Reported by: DILCIA ZULUAGA on 05/01/21 1140 Gentamicin Sulfate (Gentamicin Sulfate) 5 Ml Drops, 3 DROPS EACH EAR BID Prescribed by: KATERINA MCDONALD on 05/29/21 1024 Hydrocodone/Acetaminophen (Hydrocodone-Acetamin 5-325 mg) 1 Each Tablet, 1 TAB PO Q4H PRN for PAIN-MODERATE (5-7) Prescribed by: KATERINA MCDONALD on 05/29/21 1024 Melatonin (Melatonin) 3 Mg Capsule, 6 MG PO HS, (Reported) Entered as Reported by: DILCIA ZULUAGA on 05/01/21 1140 Review of Systems Constitutional: see HPI EENTM: see HPI Respiratory: no symptoms reported Cardiovascular: no symptoms reported Genitourinary: no symptoms reported Musculoskeletal: see HPI Skin: no symptoms reported Psychiatric/Neurological: No Symptoms Reported Past Luaqejq-Ipghry-Sevufm Hx Patient Social History Tobacco Use?: No Use of E-Cig and/or Vaping dev: No Substance use?: No Alcohol Use?: No Pt feels they are or have been: No Immunizations Up To Date Tetanus Booster (TDap): Unknown PED Vaccines UTD: Yes First/Initial COVID19 Vaccinat: NO Second COVID19 Vaccination Saúl: NO Third COVID19 Vaccination Date: NO Seasonal Allergies Seasonal Allergies: No Past Medical History Surgeries: Yes (KIDNEY STONE SURGERY) Nose, Tonsillectomy Respiratory: No Sleep Apnea Cardiac: No Neurological: No Reproductive Disorders: No Sexually Transmitted Disease: No HIV/AIDS: No Genitourinary: Yes Kidney Stones Gastrointestinal: No Musculoskeletal: No Endocrine: No HEENT: No Loss of Vision: Denies Hearing Impairment: Denies Cancer: No Psychosocial: Yes Depression Integumentary: No Blood Disorders: No Adverse Reaction/Blood Tranf: No (N/A) Physical Exam Vital Signs Vital Signs - First Documented 05/11/22 14:00 Pulse 73 Resp 16 B/P (MAP) 153/94 (113) Pulse Ox 99 O2 Delivery Room Air Capillary Refill : Less Than 3 Seconds Height, Weight, BMI Height: 5'9.00" Weight: 248lbs. 9.0oz. 112.815143el; 32.00 BMI Method:Stated General Appearance: WD/WN, no apparent distress Neck: non-tender, full range of motion Respiratory: no respiratory distress, no accessory muscle use Gastrointestinal: normal bowel sounds, non tender Shoulder: normal inspection, non-tender Elbow/Forearm: normal inspection, non-tender, Right, pain (Pain is over the ulnar/volar aspect of the wrist and is worsened with resisted ulnar deviation. Suspect a tendinitis.) Wrist: Yes normal inspection, Yes non-tender Hand: normal inspection, non-tender Neurologic/Psychiatric: alert, normal mood/affect, oriented x 3 Skin: normal color, warm/dry Progress/Results/Core Measures Results/Orders My Orders Orders - YANDEL BUCKLEY APRN Wrist, Right, 3 Views Or More (05/11/22 14:11) Vital Signs/I&O 05/11/22 14:00 Pulse 73 Resp 16 B/P (MAP) 153/94 (113) Pulse Ox 99 O2 Delivery Room Air Blood Pressure Mean: 113 Departure Impression Primary Impression: Tendinitis of right wrist Disposition: 01 HOME, SELF-CARE Condition: Stable Departure-Patient Inst. Decision time for Depature: 14:16 Referrals: NO,LOCAL PHYSICIAN (PCP/Family) Primary Care Physician Patient Instructions: Tendonitis (DC) Add. Discharge Instructions: 1. Wear the splint at home, take it off to sleep. Try to wear it during the day when you are active and working. Take the steroid pack as directed. All discharge instructions reviewed with patient and/or family. Voiced understanding. Scripts Methylprednisolone (Methylprednisolone Dose Pack) 4 Mg Tab.ds.pk 4 MG PO UD for 6 Days, #21 PKG PER DOSE PACK INSTRUCTIONS Prov: YANDEL BUCKLEY APRN 05/11/22 YANDEL BUCKLEY APRN May 11, 2022 14:17
[2022-05-11 14:23] VITALS: BP 153/94
--- NOTE | 2022-05-11 14:35 | Diagnostic Imaging Report ---
INDICATION: Ulnar region wrist pain AP, oblique and lateral views of right wrist are obtained. FINDINGS: There is ulnar minus variation without evidence of lunate or triquetral abnormality. There does appear to be widening of the distal radioulnar joint and possibility of underlying ligamentous injury is not excluded. This could involve the trigone fibrocartilaginous complex. IMPRESSION: Widening distal radioulnar joint with ulnar minus variation. Underlying ligamentous or cartilage injury is not excluded however no acute osseous abnormality is detected. Dictated by: Dictated on workstation # [id number]
== END 2022-05-11 14:23 | disposition home or self-care (01) ==
LOC: EDUNIT# 13:53 → ER 13:56
DX: M77.8 Other enthesopathies, not elsewhere classified (principal)
CPT/HCPCS: 73110

== ENCOUNTER → 2022-08-03 | Outpatient (CLI) | payer OTHER ==
[~2022-08-03] MED LIST changes: +METH4TAB10 PO
--- NOTE | 2022-08-03 13:10 | Diagnostic Imaging Report ---
PROCEDURE: MRI right upper extremity without contrast. TECHNIQUE: Multiplanar, multisequence non contrast-enhanced MRI of the upper extremity was accomplished. INDICATION: Right forearm pain with no known injury. COMPARISON: None. FINDINGS: No acute fracture or dislocation is seen in the right forearm involving the radius and ulna. Alignment is normal. There is no elbow joint effusion. Ligaments and tendons about the elbow are suboptimally evaluated in this sneab-ak-cfal, but the ulnar and radial ligaments appear to be intact. No significant tear is seen at the origins of the common flexor and common extensor tendons. No focal muscular atrophy is seen. No soft tissue masses or fluid collections are identified. No muscular edema is seen in the forearm. The ulnar nerve appears normal in course and signal. IMPRESSION: 1. No acute abnormality is seen in the right forearm. Dictated by: Dictated on workstation # [id number]
--- NOTE | 2022-08-03 14:25 | Diagnostic Imaging Report ---
PROCEDURE: MRI right joint upper extremity without contrast. TECHNIQUE: Multiplanar, multisequence non contrast-enhanced MRI of the right upper extremity was accomplished. INDICATION: Ulnar-sided wrist pain. COMPARISON: Wrist radiographs of 05/11/2022. FINDINGS: Tendons: Extensor carpi ulnaris has ulnar subluxation from the distal ulnar groove likely due to sub-sheath tear. The extensor carpi ulnaris remains intact. The other extensor tendons of the wrist are normal. Flexor tendons are also normal. No abnormal thickening of the flexor retinaculum. Intrinsic Ligaments: TFC articular disc appears to remain intact. Lunotriquetral ligament cannot be adequately assessed without intra-articular contrast. Dorsal and volar bands of scapholunate ligament are normal. Bones: There is mild bone marrow edema in the distal aspect of the radius. A small cystic lesion is also present in the distal aspect of the ulna. Questionable dorsal subluxation of the distal radioulnar joint. T2 hyperintense synovitis is present in the DRUJ. No additional sites of osteitis or erosions. Degenerative subcortical cyst in the distal pole of the scaphoid. Soft Tissues: No T2 hyperintense ganglion cyst around the wrist. No mass effect on the median or ulnar nerve. IMPRESSION: 1. Ulnar subluxation of the extensor carpi ulnaris tendon is likely from a sub-sheath tear. The ECU is intact distally. 2. Edema in the distal ulna may be reactive in nature from hyperemia secondary to inflammatory arthritis versus degenerative change at the DRUJ. Dictated by: Dictated on workstation # [id number]
== END ==
LOC: RAD 09:30
PROVIDERS: ATTEND Nurse Practitioner Family
DX: S53.101A Unspecified subluxation of right ulnohumeral joint, initial encounter (principal); X58.XXXA Exposure to other specified factors, initial encounter
CPT/HCPCS: 73218; 73221

== ENCOUNTER 2022-08-14 08:08 | Emergency (ER) | payer OTHER ==
[~2022-08-14] VITALS: Ht 175 cm; Wt 99.8 kg
[2022-08-14] MEDS ORDERED: KETOROLAC 30 MG/ML VIAL IVP STA (08:28)
[2022-08-14] MEDS ORDERED: LACTATED RINGERS 1,000 ML IV STA (08:28)
[2022-08-14] MEDS ORDERED: ONDANSETRON 4 MG/2 ML (SDV) Z0FRAN IVP ONE (08:30)
--- NOTE | 2022-08-14 08:34 | ED General ---
General Chief Complaint: Cough/Cold/Flu Symptoms Stated Complaint: FLU Nursing Triage Note: PT STATES DIARRHEA SINCE LAST NIGHT, FEVER, 2 IBUPROFEN ABOUT 2 HRS DIRECTOR FRAUD, DENIES VOMITING Source of Information: Patient Exam Limitations: No Limitations History of Present Illness Date Seen by Provider: Aug 14, 2022 Time Seen by Provider: 08:16 Initial Comments Reports onset of last night with fever, chills, nausea, 7 episodes of diarrhea and body aches. He has not taken anything for the pain or anything else. Family was worried about flu and wanted to get prescription for Tamiflu if that is what this was. Denies sore throat, runny nose or cough or other symptoms. Timing/Duration: 12-24 Hours Severity: Moderate Associated Systoms: No Chest Pain, No Cough; Fever/Chills, Nausea/Vomiting; No Shortness of Air, No Weakness Allergies and Home Medications Allergies Coded Allergies: No Known Drug Allergies (Unverified , 07/27/16) Patient Home Medication List Home Medication List Reviewed: Yes Fluoxetine HCl (Prozac) Unknown Strength Capsule, Unknown Dose PO DAILY, (Reported) Entered as Reported by: DILCIA ZULUAGA on 05/01/21 1140 Gentamicin Sulfate (Gentamicin Sulfate) 5 Ml Drops, 3 DROPS EACH EAR BID Prescribed by: KATERINA MCDONALD on 05/29/21 1024 Hydrocodone/Acetaminophen (Hydrocodone-Acetamin 5-325 mg) 1 Each Tablet, 1 TAB PO Q4H PRN for PAIN-MODERATE (5-7) Prescribed by: KATERINA MCDONALD on 05/29/21 1024 Melatonin (Melatonin) 3 Mg Capsule, 6 MG PO HS, (Reported) Entered as Reported by: DILCIA ZULUAGA on 05/01/21 1140 Methylprednisolone (Methylprednisolone Dose Pack) 4 Mg Tab.ds.pk, 4 MG PO UD Prescribed by: YANDEL BUCKLEY on 05/11/22 1417 Review of Systems Review of Systems Constitutional: see HPI, chills, fever EENTM: No nose congestion, No throat pain Respiratory: No cough, No short of breath Cardiovascular: no symptoms reported Gastrointestinal: diarrhea (7 episodes of nonbloody), nausea Genitourinary: no symptoms reported Musculoskeletal: muscle pain; No muscle weakness Skin: no symptoms reported Psychiatric/Neurological: Denies Headache, Denies Weakness Past Ybralpp-Keprre-Vgiskq Hx Patient Social History Tobacco Use?: No Substance use?: No Alcohol Use?: No Immunizations Up To Date Tetanus Booster (TDap): Unknown PED Vaccines UTD: Yes First/Initial COVID19 Vaccinat: NO Second COVID19 Vaccination Saúl: NO Third COVID19 Vaccination Date: NO Seasonal Allergies Seasonal Allergies: No Past Medical History Surgery/Hospitalization HX: DENIES MED HX Surgeries: Yes (KIDNEY STONE SURGERY, sinus surgery) Nose, Tonsillectomy Respiratory: Yes Sleep Apnea Cardiac: No Neurological: No Reproductive Disorders: No Sexually Transmitted Disease: No HIV/AIDS: No Genitourinary: Yes Kidney Stones Gastrointestinal: No Musculoskeletal: No Endocrine: No HEENT: No Loss of Vision: Denies Hearing Impairment: Denies Cancer: No Psychosocial: Yes Depression Integumentary: No Blood Disorders: No Adverse Reaction/Blood Tranf: No (N/A) Family Medical History Reviewed Nursing Family Hx No Pertinent Family Hx Physical Exam Vital Signs Vital Signs - First Documented 08/14/22 08:14 Temp 37.1 Pulse 102 Resp 20 B/P (MAP) 156/86 (109) Pulse Ox 97 O2 Delivery Room Air Capillary Refill : Less Than 3 Seconds Height, Weight, BMI Height: 5'9.00" Weight: 248lbs. 9.0oz. [id number]; 32.00 BMI Method:Stated General Appearance: No Apparent Distress, WD/WN HEENT: PERRL/EOMI, Pharynx Normal Neck: Non Tender, Supple Respiratory: Lungs Clear, Normal Breath Sounds Cardiovascular: No Murmur, Tachycardia Gastrointestinal: Non Tender, Soft Extremity: Normal Range of Motion, Non Tender Neurologic/Psychiatric: Alert, Oriented x3 Skin: Normal Color, Warm/Dry Progress/Results/Core Measures Suspected Sepsis SIRS Temperature: Pulse: 102 Respiratory Rate: 20 Laboratory Tests 08/14/22 08:30: White Blood Count 9.4 Blood Pressure 156 /86 Mean: 109 Laboratory Tests 08/14/22 08:30: Creatinine 1.08, Platelet Count 188, Total Bilirubin 0.8 Results/Orders Lab Results Laboratory Tests Test 08/14/22 08:17 08/14/22 08:30 Range/Units Influenza Type A (RT-PCR) Not Detected Not Detecte Influenza Type B (RT-PCR) Not Detected Not Detecte SARS-CoV-2 RNA (RT-PCR) Not Detected Not Detecte White Blood Count 9.4 4.3-11.0 10^3/uL Red Blood Count 5.54 H 4.30-5.52 10^6/uL Hemoglobin 15.7 13.3-17.7 g/dL Hematocrit 46 40-54 % Mean Corpuscular Volume 82 80-99 fL Mean Corpuscular Hemoglobin 28 25-34 pg Mean Corpuscular Hemoglobin Concent 35 32-36 g/dL Red Cell Distribution Width 13.3 10.0-14.5 % Platelet Count 188 130-400 10^3/uL Mean Platelet Volume 9.5 9.0-12.2 fL Immature Granulocyte % (Auto) 0 % Neutrophils (%) (Auto) 85 H 42-75 % Lymphocytes (%) (Auto) 5 L 12-44 % Monocytes (%) (Auto) 10 0-12 % Eosinophils (%) (Auto) 0 0-10 % Basophils (%) (Auto) 0 0-10 % Neutrophils # (Auto) 8.0 H 1.8-7.8 10^3/uL Lymphocytes # (Auto) 0.4 L 1.0-4.0 10^3/uL Monocytes # (Auto) 0.9 0.0-1.0 10^3/uL Eosinophils # (Auto) 0.0 0.0-0.3 10^3/uL Basophils # (Auto) 0.0 0.0-0.1 10^3/uL Immature Granulocyte # (Auto) 0.0 0.0-0.1 10^3/uL Neutrophils % (Manual) 78 % Lymphocytes % (Manual) 8 % Monocytes % (Manual) 7 % Eosinophils % (Manual) 0 % Basophils % (Manual) 0 % Band Neutrophils 7 % Blood Morphology Comment NORMAL Sodium Level 134 L 135-145 MMOL/L Potassium Level 3.9 3.6-5.0 MMOL/L Chloride Level 104 98-107 MMOL/L Carbon Dioxide Level 19 L 21-32 MMOL/L Anion Gap 11 5-14 MMOL/L Blood Urea Nitrogen 17 7-18 MG/DL Creatinine 1.08 0.60-1.30 MG/DL Estimat Glomerular Filtration Rate 84 BUN/Creatinine Ratio 16 Glucose Level 127 H 70-105 MG/DL Calcium Level 9.2 8.5-10.1 MG/DL Corrected Calcium 9.0 8.5-10.1 MG/DL Total Bilirubin 0.8 0.1-1.0 MG/DL Aspartate Amino Transf (AST/SGOT) 27 5-34 U/L Alanine Aminotransferase (ALT/SGPT) 48 0-55 U/L Alkaline Phosphatase 72 40-136 U/L Total Protein 7.2 6.4-8.2 GM/DL Albumin 4.3 3.2-4.5 GM/DL My Orders Orders - RANDI APONTE MD Influenza A And B By Pcr (08/14/22 08:20) Covid 19 Inhouse Test (08/14/22 08:21) Ondansetron Injection (Zofran Injectio (08/14/22 08:30) Lactated Ringers (Lr 1000 Ml Iv Solution (08/14/22 08:28) Ed Iv/Invasive Line Start (08/14/22 08:28) Ketorolac Injection (Toradol Injection) (08/14/22 08:28) Cbc With Automated Diff (08/14/22 08:28) Comprehensive Metabolic Panel (08/14/22 08:28) Manual Differential (08/14/22 08:30) Medications Given in ED Current Medications Medications Dose Ordered Sig/Kathe Route Start Time Stop Time Status Last Admin Dose Admin Ondansetron HCl 4 mg ONCE ONCE IVP 08/14/22 08:30 08/14/22 08:31 DC 08/14/22 08:37 4 MG Vital Signs/I&O 08/14/22 08/14/22 08:14 08:37 Temp 37.1 37.1 Pulse 102 Resp 20 B/P (MAP) 156/86 (109) Pulse Ox 97 O2 Delivery Room Air Capillary Refill : Less Than 3 Seconds Blood Pressure Mean: 109 Progress Note : Progress Note Seen and evaluated. IV, CBC and CMP ordered due to persistence of symptoms. We will check flu and COVID test. LR 1 L bolus and Toradol 30 mg IV ordered. Zofran 4 mg IV for nausea. Monitor patient. 0944: Labs reviewed and CBC shows no significant abnormality and chemistries are also grossly normal. He feels much better now after fluids and meds. COVID and influenza test are negative. Believe this is likely more related to the stomach virus going around currently. This was all discussed with the patient. Discharged home with return precautions. Patient verbalized understanding instructions and agreement with plan. Departure Impression Primary Impression: Viral syndrome Additional Impression: Diarrhea Qualified Codes: R19.7 - Diarrhea, unspecified Disposition: 01 HOME, SELF-CARE Condition: Improved Departure-Patient Inst. Decision time for Depature: 09:45 Referrals: NO,LOCAL PHYSICIAN (PCP/Family) Primary Care Physician Patient Instructions: Diarrhea, Adult ED, Viral Syndrome (DC) Add. Discharge Instructions: All discharge instructions reviewed with patient and/or family. Voiced understanding. You may take Tylenol/acetaminophen 1000 mg every 6-8 hours as needed for fever or pain. You may take ibuprofen 600 mg every 8 hours as needed for fever or pain. Drink plenty of fluids by taking small sips frequently. Clear or light diet for the next 24 hours and then advance as tolerated. Take other medications as directed. Return for worse pain, fever, vomiting, weakness, breathing problems or other concerns as needed. Scripts Ondansetron (Ondansetron Odt) 4 Mg Tab.rapdis 4 MG PO Q6H PRN for NAUSEA/VOMITING, #12 TAB 0 Refills Prov: RANDI APONTE MD 08/14/22 RANDI APONTE MD Aug 14, 2022 08:34
[2022-08-14 08:38] LABS: BASOPHILS % (AUTO) 0 % (0-10); EOSINOPHILS % (AUTO) 0 % (0-10); HEMATOCRIT 46 % (40-54); HEMOGLOBIN 15.7 g/dL (13.3-17.7); LYMPHOCYTES # (AUTO) 0.4 10^3/uL (1.0-4.0); LYMPHOCYTES % (AUTO) 5 % (12-44); MEAN CORPUSCULAR HEMOGLOBIN 28 pg (25-34); MEAN CORPUSCULAR HGB CONC 35 g/dL (32-36); MEAN CORPUSCULAR VOLUME 82 fL (80-99); MEAN PLATELET VOLUME 9.5 fL (9.0-12.2); MONOCYTES # (AUTO) 0.9 10^3/uL (0.0-1.0); MONOCYTES % (AUTO) 10 % (0-12); NEUTROPHILS % (AUTO) 85 % (42-75); PLATELET COUNT 188 10^3/uL (130-400); WHITE BLOOD COUNT 9.4 10^3/uL (4.3-11.0)
[2022-08-14 08:55] LABS: ALBUMIN 4.3 GM/DL (3.2-4.5); POTASSIUM 3.9 MMOL/L (3.6-5.0)
[2022-08-14 08:56] LABS: CALCIUM 9.2 MG/DL (8.5-10.1)
[2022-08-14 08:58] LABS: TOTAL PROTEIN 7.2 GM/DL (6.4-8.2)
[2022-08-14 08:59] LABS: BILIRUBIN,TOTAL 0.8 MG/DL (0.1-1.0)
[2022-08-14 09:01] LABS: CREATININE SERUM 1.08 MG/DL (0.60-1.30)
[2022-08-14 09:14] LABS: BAND NEUTROPHILS 7 %; BASOPHILS % (MANUAL) 0 %; EOSINOPHILS % (MANUAL) 0 %; LYMPHOCYTES % (MANUAL) 8 %; MONOCYTES % (MANUAL) 7 %; NEUTROPHILS % (MANUAL) 78 %; RBC MORPH NORMAL
[2022-08-14] MEDS ORDERED: ONDA4TAB11 PO (09:47)
[2022-08-14 09:52] VITALS: BP 133/79
== END 2022-08-14 09:52 | disposition home or self-care (01) ==
LOC: EDUNIT# 08:08 → ER 08:09
DX: B34.9 Viral infection, unspecified (principal); R19.7 Diarrhea, unspecified; R50.9 Fever, unspecified; R11.0 Nausea; Z20.822 Contact with and (suspected) exposure to COVID-19; Z28.310 Unvaccinated for COVID-19
CPT/HCPCS: 36415; 80053; 85007; 85027; 87636; 99283

== ENCOUNTER 2023-01-29 19:44 | Emergency (ER) | payer OTHER ==
[~2023-01-29] VITALS: Ht 175.3 cm; Wt 95.0 kg
[~2023-01-29 19:44] MED LIST changes: -GENT5DRO30 EACH EAR; +GENT5DRO6 EACH EAR; +ONDA4TAB11 PO
[2023-01-29 19:50] VITALS: BP 144/90
--- NOTE | 2023-01-29 20:05 | ED EENT ---
History of Present Illness General Chief Complaint: Ear Problems Stated Complaint: RIGHT EARACHE Source: patient Exam Limitations: no limitations History of Present Illness Date Seen by Provider: Jan 29, 2023 Time Seen by Provider: 19:46 Initial Comments 52-year-old male presents to the ER with complaints of right ear pain. He states that he gets ear infections frequently, approximately twice a year. He follows Dr. Purcell, ENT. He sees Dr. Purcell every 3 months for ear cleaning. Denies any drainage from the ear. Denies fevers. Allergies and Home Medications Allergies Coded Allergies: No Known Drug Allergies (Unverified , 07/27/16) Patient Home Medication List Home Medication List Reviewed: Yes Amoxicillin (Amoxicillin) 875 Mg Tablet, 875 MG PO BID Prescribed by: Shanell Mckeon on 01/29/232007 Fluoxetine HCl (Prozac) Unknown Strength Capsule, Unknown Dose PO DAILY, (Reported) Entered as Reported by: DILCIA ZULUAGA on 05/01/21 1140 Gentamicin Sulfate (Gentamicin Sulfate) 5 Ml Drops, 3 DROPS EACH EAR BID Prescribed by: KATERINA MCDONALD on 05/29/21 1024 Hydrocodone/Acetaminophen (Hydrocodone-Acetamin 5-325 mg) 1 Each Tablet, 1 TAB PO Q4H PRN for PAIN-MODERATE (5-7) Prescribed by: KATERINA MCDONALD on 05/29/21 1024 Ketorolac Tromethamine (Ketorolac Tromethamine) 10 Mg Tablet, 10 MG PO Q6H Prescribed by: Shanell Mckeon on 01/29/232007 Melatonin (Melatonin) 3 Mg Capsule, 6 MG PO HS, (Reported) Entered as Reported by: DILCIA ZULUAGA on 05/01/21 1140 Methylprednisolone (Methylprednisolone Dose Pack) 4 Mg Tab.ds.pk, 4 MG PO UD Prescribed by: YANDEL BUCKLEY on 05/11/22 1417 Ondansetron (Ondansetron Odt) 4 Mg Tab.rapdis, 4 MG PO Q6H PRN for NAUSEA/VOMITING Prescribed by: RANDI APONTE on 08/14/22 0947 Review of Systems Review of Systems Constitutional: see HPI Past Rpgsafm-Ddgvzy-Exunhf Hx Immunizations Up To Date Tetanus Booster (TDap): Unknown PED Vaccines UTD: Yes First/Initial COVID19 Vaccinat: NO Second COVID19 Vaccination Saúl: NO Third COVID19 Vaccination Date: NO Seasonal Allergies Seasonal Allergies: No Past Medical History Surgery/Hospitalization HX: DENIES MED HX Surgeries: Yes (KIDNEY STONE SURGERY, sinus surgery) Nose, Tonsillectomy Respiratory: Yes Sleep Apnea Cardiac: No Neurological: No Reproductive Disorders: No Sexually Transmitted Disease: No HIV/AIDS: No Genitourinary: Yes Kidney Stones Gastrointestinal: No Musculoskeletal: No Endocrine: No HEENT: No Loss of Vision: Denies Hearing Impairment: Denies Cancer: No Psychosocial: Yes Depression Integumentary: No Blood Disorders: No Adverse Reaction/Blood Tranf: No (N/A) Family Medical History No Pertinent Family Hx Physical Exam Vital Signs Vital Signs - First Documented 01/29/23 19:50 Temp 36.7 Pulse 78 Resp 16 B/P (MAP) 144/90 (108) Height, Weight, BMI Height: 5'9.00" Weight: 248lbs. 9.0oz. 112.768956ru; 32.00 BMI Method:Stated General Appearance: WD/WN, no apparent distress Ears: right ear tenderness, right ear TM red, right ear TM bulging, right ear other (Loss of landmarks) Neck: supple, normal inspection Cardiovascular: regular rate, rhythm, no edema, no gallop, no JVD, no murmur Respiratory: lungs clear, normal breath sounds, no respiratory distress, no accessory muscle use Neurologic/Psychiatric: alert, normal mood/affect Skin: normal color, warm/dry Progress/Results/Core Measures Results/Orders My Orders Orders - SHANELL MCKEON APRN Amoxicillin Capsule (Polymox Capsule) (01/29/23 20:15) Vital Signs/I&O Progress Progress Note : Progress Note Patient seen and evaluated, resting comfortably in recliner, no acute distress. Based on exam and symptoms, this is otitis media. Will prescribe amoxicillin, first dose will be given here. Patient also requesting prescription for Toradol, states that Toradol really helps with his ear pain. Discharge instructions and return precautions provided. Departure Impression Primary Impression: Otitis media Disposition: 01 HOME, SELF-CARE Condition: Stable Departure-Patient Inst. Decision time for Depature: 20:03 Referrals: NO,LOCAL PHYSICIAN (PCP/Family) Primary Care Physician Patient Instructions: Ear Infections (Otitis Media) in Adults (DC) Add. Discharge Instructions: Complete full course of antibiotic as prescribed. Do not stop taking if you begin to feel better. Take Toradol as needed for pain. Follow-up with Dr. Purcell next week if symptoms do not improve. Return for severe pain, fever, or any other new, concerning, or worsening symptoms. All discharge instructions reviewed with patient and/or family. Voiced understanding. Scripts Ketorolac Tromethamine (Ketorolac Tromethamine) 10 Mg Tablet 10 MG PO Q6H, #90 TAB 0 Refills Prov: SHANELL MCKEON APRN 01/29/23 Amoxicillin (Amoxicillin) 875 Mg Tablet 875 MG PO BID for 5 Days, #10 TAB 0 Refills Prov: SHANELL MCKEON APRN 01/29/23 SHANELL MCKEON APRN Jan 29, 2023 20:04
[2023-01-29] MEDS ORDERED: AMOX875T2 PO (20:08)
[2023-01-29] MEDS ORDERED: KETO10TA PO (20:08)
[2023-01-29] MEDS ORDERED: AMOXICILLIN 500 MG (POLYMOX) CAP PO ONE (20:15)
== END 2023-01-29 20:19 | disposition home or self-care (01) ==
LOC: EDUNIT# 19:44 → ER 19:47
DX: H66.91 Otitis media, unspecified, right ear (principal); Z28.310 Unvaccinated for COVID-19
CPT/HCPCS: 99283

== ENCOUNTER 2023-03-02 14:29 | Emergency (ER) | payer OTHER ==
[~2023-03-02] VITALS: Ht 175 cm; Wt 93.0 kg
[~2023-03-02 14:29] MED LIST changes: +AMOX875T2 PO; +KETO10TA PO
[2023-03-02 15:10] LABS: BASOPHILS % (AUTO) 1 % (0-10); EOSINOPHILS # (AUTO) 0.1 10^3/uL (0.0-0.3); EOSINOPHILS % (AUTO) 2 % (0-10); HEMATOCRIT 47 % (40-54); HEMOGLOBIN 15.8 g/dL (13.3-17.7); LYMPHOCYTES % (AUTO) 27 % (12-44); MEAN CORPUSCULAR HEMOGLOBIN 28 pg (25-34); MEAN CORPUSCULAR HGB CONC 33 g/dL (32-36); MEAN CORPUSCULAR VOLUME 85 fL (80-99); MEAN PLATELET VOLUME 10.4 fL (9.0-12.2); MONOCYTES # (AUTO) 0.5 10^3/uL (0.0-1.0); MONOCYTES % (AUTO) 7 % (0-12); NEUTROPHILS # (AUTO) 4.7 10^3/uL (1.8-7.8); NEUTROPHILS % (AUTO) 63 % (42-75); PLATELET COUNT 238 10^3/uL (130-400); WHITE BLOOD COUNT 7.4 10^3/uL (4.3-11.0)
--- NOTE | 2023-03-02 15:10 | ED Chest Pain ---
General Chief Complaint: Chest Pain Stated Complaint: CHEST PAIN Source: patient Exam Limitations: no limitations History of Present Illness Date Seen by Provider: Mar 02, 2023 Time Seen by Provider: 15:08 Initial Comments Patient is a 52-year-old male who presents ED with left-sided chest pain. Chest pain over the past 3 to 4 months. Pain is located near the left side of chest. Pain does not radiate. Rates pain 5 out of 10. described as sharp and intermi ttent. Does seem to notice the pain with movement. Denies pain on palpation. Pain is not associated with exertion. Has pain while sitting as well. Denies of any shortness of breath, nausea, abdominal pain, head pain, dizziness, vomiting, cough with the pain. Patient denies history of similar symptoms in the past. Denies any recent travels or surgeries, leg pain or swelling. Denies history of coronary artery disease, CHF, COPD or asthma. Denies smoking. Does have a history of hypertension currently on medication. Patient denies high cholesterol, diabetes, smoking, drug use. Patient denies taking medication at home. [facility] Allergies and Home Medications Allergies Coded Allergies: No Known Drug Allergies (Unverified , 07/27/16) Patient Home Medication List Home Medication List Reviewed: Yes Amoxicillin (Amoxicillin) 875 Mg Tablet, 875 MG PO BID Prescribed by: Shanell Hollins on 01/29/232007 Fluoxetine HCl (Prozac) Unknown Strength Capsule, Unknown Dose PO DAILY, (Reported) Entered as Reported by: DILCIA ZULUAGA on 05/01/21 1140 Gentamicin Sulfate (Gentamicin Sulfate) 5 Ml Drops, 3 DROPS EACH EAR BID Prescribed by: KATERINA MCDONALD on 05/29/21 1024 Hydrocodone/Acetaminophen (Hydrocodone-Acetamin 5-325 mg) 1 Each Tablet, 1 TAB PO Q4H PRN for PAIN-MODERATE (5-7) Prescribed by: KATERINA MCDONALD on 05/29/21 1024 Ketorolac Tromethamine (Ketorolac Tromethamine) 10 Mg Tablet, 10 MG PO Q6H Prescribed by: Shanell Hollins on 01/29/232007 Melatonin (Melatonin) 3 Mg Capsule, 6 MG PO HS, (Reported) Entered as Reported by: DILCIA ZULUAGA on 05/01/21 1140 Methylprednisolone (Methylprednisolone Dose Pack) 4 Mg Tab.ds.pk, 4 MG PO UD Prescribed by: YANDEL BUCKLEY on 05/11/22 1417 Ondansetron (Ondansetron Odt) 4 Mg Tab.rapdis, 4 MG PO Q6H PRN for NAUSEA/VOMITING Prescribed by: RANDI APONTE on 08/14/22 0923 Review of Systems Review of Systems Constitutional: No chills, No diaphoresis EENTM: No Double Vision, No Eye Pain, No Ear Pain, No Mouth Pain, No Mouth Swelling Respiratory: Denies Cough, Denies Orthopnea Cardiovascular: Chest Pain Gastrointestinal: Denies Diarrhea, Denies Nausea, Denies Vomiting Genitourinary: Denies Burning, Denies Discharge, Denies Drainage, Denies Frequency Musculoskeletal: No back pain, No joint pain Skin: No change in color, No change in hair/nails All Other Systems Reviewed Negative Unless Noted: Yes Past Nwjvijl-Jomxza-Uocznu Hx Immunizations Up To Date Tetanus Booster (TDap): Unknown PED Vaccines UTD: Yes First/Initial COVID19 Vaccinat: unk Second COVID19 Vaccination Saúl: unk Third COVID19 Vaccination Date: unk Seasonal Allergies Seasonal Allergies: No Past Medical History Surgery/Hospitalization HX: DENIES MED HX Surgeries: Yes (KIDNEY STONE SURGERY, sinus surgery) Nose, Tonsillectomy Respiratory: Yes Sleep Apnea Cardiac: No Neurological: No Reproductive Disorders: No Sexually Transmitted Disease: No HIV/AIDS: No Genitourinary: Yes Kidney Stones Gastrointestinal: No Musculoskeletal: No Endocrine: No HEENT: No Loss of Vision: Denies Hearing Impairment: Denies Cancer: No Psychosocial: Yes Depression Integumentary: No Blood Disorders: No Adverse Reaction/Blood Tranf: No (N/A) Family Medical History No Pertinent Family Hx Physical Exam Vital Signs Vital Signs - First Documented 03/02/23 14:35 Temp 36.1 Pulse 74 Resp 20 B/P (MAP) 124/103 (110) Pulse Ox 97 O2 Delivery Room Air Capillary Refill : Height, Weight, BMI Height: 5'9.00" Weight: 248lbs. 9.0oz. [id number]; 30.00 BMI Method:Stated General Appearance: No Apparent Distress, WD/WN HEENT: PERRL/EOMI, TMs Normal, Normal ENT Inspection, Pharynx Normal Neck: Full Range of Motion, Normal Inspection, Non Tender, Supple Respiratory: Chest Non Tender, Lungs Clear, Normal Breath Sounds, No Accessory Muscle Use, No Respiratory Distress Cardiovascular: Regular Rate, Rhythm, No Edema, No Gallop, No JVD Gastrointestinal: Normal Bowel Sounds, No Organomegaly, No Pulsatile Mass, Non Tender Extremity: Normal Capillary Refill, Normal Inspection, Normal Range of Motion, Non Tender Neurologic/Psychiatric: Alert, Oriented x3, No Motor/Sensory Deficits, Normal Mood/Affect, brake specialist II-XII Norm as Tested Skin: Normal Color, Warm/Dry Progress/Results/Core Measures Results/Orders Lab Results Laboratory Tests Test 03/02/23 14:40 03/02/23 15:05 03/02/23 16:48 Range/Units White Blood Count 7.4 4.3-11.0 10^3/uL Red Blood Count 5.58 H 4.30-5.52 10^6/uL Hemoglobin 15.8 13.3-17.7 g/dL Hematocrit 47 40-54 % Mean Corpuscular Volume 85 80-99 fL Mean Corpuscular Hemoglobin 28 25-34 pg Mean Corpuscular Hemoglobin Concent 33 32-36 g/dL Red Cell Distribution Width 13.1 10.0-14.5 % Platelet Count 238 130-400 10^3/uL Mean Platelet Volume 10.4 9.0-12.2 fL Immature Granulocyte % (Auto) 0 % Neutrophils (%) (Auto) 63 42-75 % Lymphocytes (%) (Auto) 27 12-44 % Monocytes (%) (Auto) 7 0-12 % Eosinophils (%) (Auto) 2 0-10 % Basophils (%) (Auto) 1 0-10 % Neutrophils # (Auto) 4.7 1.8-7.8 10^3/uL Lymphocytes # (Auto) 2.0 1.0-4.0 10^3/uL Monocytes # (Auto) 0.5 0.0-1.0 10^3/uL Eosinophils # (Auto) 0.1 0.0-0.3 10^3/uL Basophils # (Auto) 0.0 0.0-0.1 10^3/uL Immature Granulocyte # (Auto) 0.0 0.0-0.1 10^3/uL Prothrombin Time 12.6 12.2-14.7 SEC INR Comment 0.9 0.8-1.4 Activated Partial Thromboplast Time 31 24-35 SEC Sodium Level 143 135-145 MMOL/L Potassium Level 4.1 3.6-5.0 MMOL/L Chloride Level 107 98-107 MMOL/L Carbon Dioxide Level 29 21-32 MMOL/L Anion Gap 7 5-14 MMOL/L Blood Urea Nitrogen 16 7-18 MG/DL Creatinine 1.06 0.60-1.30 MG/DL Estimat Glomerular Filtration Rate 85 BUN/Creatinine Ratio 15 Glucose Level 94 70-105 MG/DL Calcium Level 9.8 8.5-10.1 MG/DL Corrected Calcium 8.5-10.1 MG/DL Magnesium Level 2.4 1.6-2.4 MG/DL Total Bilirubin 0.7 0.1-1.0 MG/DL Aspartate Amino Transf (AST/SGOT) 31 5-34 U/L Alanine Aminotransferase (ALT/SGPT) 46 0-55 U/L Alkaline Phosphatase 64 40-136 U/L Myoglobin 56.5 10.0-92.0 NG/ML Troponin I < 0.028 < 0.028 <0.028 NG/ML B-Type Natriuretic Peptide < 10.0 <100.0 PG/ML Total Protein 7.4 6.4-8.2 GM/DL Albumin 4.6 H 3.2-4.5 GM/DL Lipase 47 8-78 U/L Urine Color YELLOW Urine Clarity CLEAR Urine pH 7.0 5-9 Urine Specific [place] 1.020 1.016-1.022 Urine Protein NEGATIVE NEGATIVE Urine Glucose (UA) NEGATIVE NEGATIVE Urine Ketones NEGATIVE NEGATIVE Urine Nitrite NEGATIVE NEGATIVE Urine Bilirubin NEGATIVE NEGATIVE Urine Urobilinogen 0.2 < = 1.0 MG/DL Urine Leukocyte Esterase NEGATIVE NEGATIVE Urine RBC (Auto) NEGATIVE NEGATIVE Urine RBC NONE /HPF Urine WBC NONE /HPF Urine Squamous Epithelial Cells NONE /HPF Urine Crystals PRESENT H /LPF Urine Amorphous Sediment LARGE KASSY PHOSPHATE H /LPF Urine Bacteria NEGATIVE /HPF Urine Casts NONE /LPF Urine Mucus MODERATE H /LPF Urine Culture Indicated NO Urine Opiates Screen NEGATIVE NEGATIVE Urine Oxycodone Screen NEGATIVE NEGATIVE Urine Methadone Screen NEGATIVE NEGATIVE Urine Propoxyphene Screen NEGATIVE NEGATIVE Urine Barbiturates Screen NEGATIVE NEGATIVE Ur Tricyclic Antidepressants Screen NEGATIVE NEGATIVE Urine Phencyclidine Screen NEGATIVE NEGATIVE Urine Amphetamines Screen NEGATIVE NEGATIVE Urine Methamphetamines Screen NEGATIVE NEGATIVE Urine Benzodiazepines Screen POSITIVE H NEGATIVE Urine Cocaine Screen NEGATIVE NEGATIVE Urine Cannabinoids Screen NEGATIVE NEGATIVE My Orders Orders - PATRICIO ELDER PA Cbc With Automated Diff (03/02/23 15:06) Magnesium (03/02/23 15:06) Chest 1 View, Ap/Pa Only (03/02/23 15:06) Ekg Tracing (03/02/23 15:06) Comprehensive Metabolic Panel (03/02/23 15:06) Myoglobin Serum (03/02/23 15:06) Protime With Inr (03/02/23 15:06) Partial Thromboplastin Time (03/02/23 15:06) Monitor-Rhythm Ecg Trace Only (03/02/23 15:06) Ed Iv/Invasive Line Start (03/02/23 15:06) Lipase (03/02/23 15:06) Bnp [place] (03/02/23 15:06) Troponin I [place] (03/02/23 15:06) Aspirin Chewable Tablet (Baby Aspirin Ch (03/02/23 15:15) Morphine Injection (Morphine Injection (03/02/23 15:15) Ua Culture If Indicated (03/02/23 15:10) Drug Screen Stat (Urine) (03/02/23 15:10) Troponin I [place] (03/02/23 17:00) Medications Given in ED Current Medications Medications Dose Ordered Sig/Kathe Route Start Time Stop Time Status Last Admin Dose Admin Aspirin 324 mg ONCE ONCE PO 03/02/23 15:15 03/02/23 15:16 DC 03/02/23 14:56 324 MG Vital Signs/I&O 03/02/23 03/02/23 14:35 15:20 Temp 36.1 36.1 Pulse 74 Resp 20 B/P (MAP) 124/103 (110) Pulse Ox 97 O2 Delivery Room Air Departure Communication (PCP) Patient is a 52-year-old male who presents ED with left-sided chest pain over the past 3 to 4 months. Described as sharp intermittent. Does not relate with exertion. Rates pain 5 out of 10 on arrival. Denies shortness of breath, cough, nausea, vomiting. Differential diagnoses ACS, pleurisy, chest wall pain, pericarditis, pneumonia, pneumothorax. No recent travels or surgeries. Denies OF any leg swelling. SHE Is not tachycardic or hypoxic. Patient blood pressure within normal limits. History of hypertension. Denies diabetes, high cholesterol, OR smoking. Strong family cardiac history. EKG was obtained which did not show any evidence of ST elevation oR arrhythmia. did show some mild to ST depression in V1 and aVL which could be a variant of LVH. No recent comparison. pain seems to be worse when he moves his arm. No risk factors for PE. Patient is not hypoxic or tachycardic. General lab work, cardiac work-up, chest x-ray was obtained. CBC, CMP grossly unremarkable. Normal troponin. Normal coags. Received aspirin. Refused anything for pain. States he is currently pain-free. Heart score of 3. Due to the length of symptoms and initial normal troponin recommended delta troponin at this time. Delta troponin at 2-1/2 hours was negative. Remained asymptomatic. Chest x-ray was negative for pneumonia, pneumothorax. Vital signs stable. Discussed my concerns. Due to length of symptoms I do think it is reasonable for outpatient cardiac work- up. Further evaluation with echo versus stress test. Recommend staying hydrated. Patient states chest pain is not worse with exertion. He does not appear in acute distress. Recommend following up with PCP in 2 to 3 days for reevaluation provided cardiology outpatient follow-up. Return precaution were discussed Impression Primary Impression: Chest pain Disposition: 01 HOME, SELF-CARE Condition: Stable Departure-Patient Inst. Decision time for Depature: 17:23 Referrals: BALDEMAR ALLEN MD FACP FAC CCDS NO,LOCAL PHYSICIAN (PCP) Primary Care Physician Patient Instructions: Chest Pain (DC) Add. Discharge Instructions: Recommend following up with cardiology for further evaluation. If any worsening chest pain return back to ED for further evaluation. All discharge instructions reviewed with patient and/or family. Voiced understanding. PATRICIO ELDER Mar 02, 2023 15:10
[2023-03-02 15:15] LABS: BILIRUBIN,URINE NEGATIVE (NEGATIVE); CLARITY,URINE CLEAR; COLOR,URINE YELLOW; GLUCOSE, URINE (UA) NEGATIVE (NEGATIVE); KETONES,URINE NEGATIVE (NEGATIVE); LEUKOCYTE ESTERASE ,URINE NEGATIVE (NEGATIVE); NITRITE,URINE NEGATIVE (NEGATIVE); PROTEIN,URINE NEGATIVE (NEGATIVE)
[2023-03-02] MEDS ORDERED: ASPIRIN 81 MG CHEW (CHILDREN'S ASA) PO ONE (15:15)
[2023-03-02] MEDS ORDERED: morphine INJ 4 MG/ML 1 ML (VIAL/SYRINGE) IVP ONE (15:15)
[2023-03-02 15:17] LABS: ALBUMIN 4.6 GM/DL (3.2-4.5); CHLORIDE 107 MMOL/L (98-107); POTASSIUM 4.1 MMOL/L (3.6-5.0); SODIUM 143 MMOL/L (135-145)
[2023-03-02 15:19] LABS: CALCIUM 9.8 MG/DL (8.5-10.1)
[2023-03-02 15:20] LABS: GLUCOSE 94 MG/DL (70-105); INR 0.9 (0.8-1.4); PROTHROMBIN TIME PATIENT 12.6 SEC (12.2-14.7); TOTAL PROTEIN 7.4 GM/DL (6.4-8.2)
[2023-03-02 15:21] LABS: CARBON DIOXIDE 29 MMOL/L (21-32)
[2023-03-02 15:22] LABS: BILIRUBIN,TOTAL 0.7 MG/DL (0.1-1.0)
[2023-03-02 15:23] LABS: ALKALINE PHOSPHATASE 64 U/L (40-136); CREATININE SERUM 1.06 MG/DL (0.60-1.30); GFR ESTIMATED 85
[2023-03-02 15:24] LABS: BUN/CREATININE RATIO 15
[2023-03-02 15:25] LABS: AMORPHOUS SEDIMENT,UR LARGE AMOR PHOSPHATE /LPF; BACTERIA,URINE NEGATIVE /HPF
[2023-03-02 15:26] LABS: ALANINE AMINOTRANSFERASE 46 U/L (0-55); MAGNESIUM 2.4 MG/DL (1.6-2.4)
[2023-03-02 15:27] LABS: LIPASE 47 U/L (8-78)
[2023-03-02 15:35] LABS: AMPHETAMINE SCREEN, URINE NEGATIVE (NEGATIVE); BARBITURATE SCREEN URINE NEGATIVE (NEGATIVE); BENZODIAZEPINES SCREEN URINE POSITIVE (NEGATIVE); CANNABINOID SCREEN, URINE NEGATIVE (NEGATIVE); COCAINE SCREEN URINE NEGATIVE (NEGATIVE); METHADONE STAT NEGATIVE (NEGATIVE); OPIATE SCREEN URINE NEGATIVE (NEGATIVE); OXYCODONE STAT NEGATIVE (NEGATIVE); PROPOXYPHENE STAT NEGATIVE (NEGATIVE); TRICYCLIC ANTIDEPRESSANTS SCRE NEGATIVE (NEGATIVE)
--- NOTE | 2023-03-02 15:50 | Diagnostic Imaging Report ---
Indication: Chest pain Portable AP view of the chest is obtained. COMPARISON: No previous study is available for comparison at this time. FINDINGS: Heart size and pulmonary vasculature are within normal limits, and the lungs are clear, bilaterally. IMPRESSION: Unremarkable chest. Dictated by: Dictated on workstation # [id number]
[2023-03-02 17:32] VITALS: BP 127/99
== END 2023-03-02 17:32 | disposition home or self-care (01) ==
LOC: EDUNIT# 14:29 → ER 14:29
DX: R07.89 Other chest pain (principal); I10 Essential (primary) hypertension; Z79.890 Hormone replacement therapy
CPT/HCPCS: 36415; 71045; 80053; 80306; 81000; 83690; 83735; 83874; 83880; 84484; 85025; 85610; 85730; 93005; 93041

== ENCOUNTER → 2023-07-21 | Outpatient (CLI) | payer OTHER ==
--- NOTE | 2023-07-21 12:24 | Diagnostic Imaging Report ---
PROCEDURE: MRI right joint upper extremity without contrast. TECHNIQUE: Multiplanar, multisequence non contrast-enhanced MRI of the right upper extremity was accomplished. INDICATION: Bilateral wrist pain COMPARISON: 08/03/2022. Radiographs from 05/11/2022. FINDINGS: No acute fracture is seen in the right wrist. There is negative ulnar variance of approximately 5 mm. There is subcortical cystlike change and edema at the medial radius with osteophytes at the distal radioulnar joint. Cystlike changes are noted at the ulnar styloid process. There are moderate degenerative changes at the triscaphe joint. No significant joint effusion is seen. The scapholunate and lunotriquetral ligaments appear intact. There does appear to be partial tearing of the ulnar attachments of the triangular fibrocartilage complex, particularly at the foveal attachments. The disc appears to be intact. The second extensor compartment has mildly increased fluid in the tendon sheath. The extensor carpi ulnaris tendon is subluxed anteriorly out of the ulnar groove. The flexor tendons appear intact. The median and ulnar nerves appear normal. No focal muscular atrophy is seen. No soft tissue masses or fluid collections are seen. IMPRESSION: 1. Degenerative changes in the right wrist, most pronounced at the distal radioulnar joint and triscaphe joint. 2. Partial tearing of the foveal attachment of the triangular fibrocartilage. 3. Mild negative ulnar variance. 4. Mild tenosynovitis of the second extensor compartment. Persistent subluxation of the extensor carpi ulnaris tendon from prior injury. Dictated by: Dictated on workstation # [id number]
--- NOTE | 2023-07-21 12:28 | Diagnostic Imaging Report ---
PROCEDURE: MRI left upper extremity without contrast. TECHNIQUE: Multiplanar, multisequence non contrast-enhanced MRI of the left upper extremity was accomplished. INDICATION: Bilateral wrist pain. COMPARISON: None FINDINGS: There is motion artifact on multiple sequences. There is about 4 mm of negative ulnar variance. Subcortical cystlike changes and osteophytes are noted at the distal radioulnar joint. There are mild degenerative changes at the basal joints of the thumb. There is a ganglion cyst anterior to the radiocarpal joint, measuring about 9 x 4 x 9 mm in size. There does appear to be low-grade partial tearing at the proximal scapholunate ligament. A full-thickness tear is not seen and there is no widening appreciated. The lunotriquetral ligament appears intact. The triangular fibrocartilage complex appears intact. There is mild increased fluid signal in the second extensor compartment tendon sheath. No extensor tendon tear is seen. There is mild anterior subluxation of the extensor carpi ulnaris from the expected location in the ulnar groove. The flexor tendons appear intact. The median nerve and ulnar nerve are unremarkable. No focal muscular atrophy is seen. IMPRESSION: 1. Degenerative changes in the left wrist, most pronounced at the distal radioulnar joint. Mild negative ulnar variance. 2. Low-grade partial tearing of the proximal scapholunate ligament. 3. Mild anterior subluxation of the extensor carpi ulnaris tendon. Mild second extensor compartment tenosynovitis. 4. Ganglion cyst anterior to the radiocarpal joint. Dictated by: Dictated on workstation # [id number]
== END ==
LOC: RAD 09:00
PROVIDERS: ATTEND Nurse Practitioner Family
DX: M19.032 Primary osteoarthritis, left wrist (principal); M19.031 Primary osteoarthritis, right wrist; M65.88 Other synovitis and tenosynovitis, other site; M67.432 Ganglion, left wrist; S61.511A Laceration without foreign body of right wrist, initial encounter; S63.592A Other specified sprain of left wrist, initial encounter
CPT/HCPCS: 73221